=== PATIENT | female | born 1945 | race Caucasian/White ===

== ENCOUNTER 2017-03-20 08:46 | Outpatient (CLI) | payer MEDICARE, OTHER ==
[2017-03-20 10:04] LABS: HEMOGLOBIN A1C 0.51 g/dL
[2017-03-20 11:32] LABS: THYROID STIMULATING HORMONE 8.52 uIU/mL (0.34-5.60)
== END 2017-03-20 08:47 | disposition home or self-care (01) ==
LOC: LAB 08:46
PROVIDERS: ATTEND Student in an Organized Health Care Education/Training Program
DX: E03.9 Hypothyroidism, unspecified (principal)
CPT/HCPCS: 36415; 83036; 84439; 84443

== ENCOUNTER 2017-11-12 08:37 | Outpatient (CLI) | payer MEDICARE, OTHER ==
[2017-11-12 09:44] LABS: HB2 TOTAL 14.2 g/dL; HEMOGLOBIN A1C 0.52 g/dL; HEMOGLOBIN A1C % 5.5 % (4.6-6.2)
[2017-11-12 10:03] LABS: THYROID STIMULATING HORMONE 2.08 uIU/mL (0.34-5.60)
[2017-11-12 10:04] LABS: FREE T4 (FREE THYROXINE) 1.06 ng/dL (0.58-1.64)
== END 2017-11-12 08:38 | disposition home or self-care (01) ==
LOC: LAB 08:37
PROVIDERS: ATTEND Student in an Organized Health Care Education/Training Program
DX: E03.9 Hypothyroidism, unspecified (principal)
CPT/HCPCS: 36415; 83036; 84439; 84443

== ENCOUNTER 2017-12-01 10:02 | Outpatient (CLI) | payer MEDICARE, OTHER ==
--- NOTE | 2017-12-02 15:55 | Mammography Report ---
DIGITAL SCREENING MAMMOGRAM: 12/01/2017 CLINICAL INDICATION: A 72-year-old nulliparous patient with history of benign biopsies, for screening. COMPARISON: 07/2016, 04/2013, 02/2011, 01/2007. TECHNIQUE: Routine CC and MLO projections were obtained of the breasts. FINDINGS: The breasts again demonstrate heterogeneously dense fibroglandular parenchyma bilaterally. In the left upper outer posterior breast, there is a possible developing density with calcifications. Further evaluation with spot magnification views and possible ultrasound is recommended. No mammographically suspicious findings are identified in the right breast. IMPRESSION: INCOMPLETE EXAMINATION. RECOMMENDATION: ADDITIONAL EVALUATION OF THE LEFT BREAST ABOVE. BIRADS CATEGORY 0-INCOMPLETE. STANDARD QUALIFYING STATEMENTS: 1. This examination was reviewed with the aid of Computer-Aided Detection (CAD). 2. A negative or benign imaging report should not delay biopsy if clinically suspicious findings are present. Consider surgical consultation if warranted. More than 5% of cancers are not identified by imaging. 3. Dense breasts may obscure an underlying neoplasm. TD: 12/02/2017 15:54
== END 2017-12-01 10:03 | disposition home or self-care (01) ==
LOC: DI 10:02
PROVIDERS: ATTEND Internal Medicine
DX: Z12.31 Encounter for screening mammogram for malignant neoplasm of breast (principal); R92.8 Other abnormal and inconclusive findings on diagnostic imaging of breast; R92.1 Mammographic calcification found on diagnostic imaging of breast
CPT/HCPCS: 77067

== ENCOUNTER 2017-12-14 10:12 | Outpatient (CLI) | payer MEDICARE, OTHER ==
--- NOTE | 2017-12-14 13:06 | XRAY Report ---
ATTEMPTED EVALUATION OF VIKY'S POUCH: 12/14/2017 CLINICAL INDICATION: Patient with history of Crohn's disease, partial colectomy and Viky's pouch formation, evaluate residual rectum. FINDINGS: Initial creel selector view of the abdomen demonstrates postoperative changes, and an ostomy in the right lower quadrant. The surgical line of the Viky's pouch is noted overlying the coccyx. Despite multiple attempts in different positions, the patient's rectum could not be cannulized with a Voss catheter. As such, the procedure was terminated. IMPRESSION: UNSUCCESSFUL ATTEMPT TO EVALUATE THE PATIENT'S VIKY'S POUCH. FLUOROSCOPY TIME: 4 minutes 8 seconds; 7 spot images obtained. TD: 12/14/2017 13:05
== END 2017-12-14 10:13 | disposition home or self-care (01) ==
LOC: DI 10:12
PROVIDERS: ATTEND Surgery
DX: K62.4 Stenosis of anus and rectum (principal); K82.8 Other specified diseases of gallbladder
CPT/HCPCS: 74280

== ENCOUNTER 2017-12-23 08:55 | Outpatient (CLI) | payer MEDICARE, OTHER ==
--- NOTE | 2017-12-23 09:46 | Mammography Report ---
LEFT DIAGNOSTIC MAMMOGRAM: 12/23/2017 COMPARISON: Screening mammogram 12/09/2017. INDICATION: Followup left breast calcifications. TECHNIQUE: Multiple diagnostic left breast views for upper breast calcifications. FINDINGS: This finding is read in correlation with the screening mammogram. The breast parenchyma is extremely dense which may limit the sensitivity of mammography. Diagnostic views demonstrate nonlayering calcifications of the upper breast. They are round, punctate, and coarse, suggesting benignity. No dominant mass or architectural distortion is seen. IMPRESSION: 1. BI-RADS 2. BENIGN FINDINGS. 2. RECOMMEND ANNUAL SCREENING MAMMOGRAM. STANDARD QUALIFYING STATEMENTS: 1. This examination was reviewed with the aid of Computer-Aided Detection (CAD) . 2. A negative or benign imaging report should not delay biopsy if clinically suspicious findings are present. Consider surgical consultation if warranted. More than 5 % of cancers are not identified by imaging. 3. Dense breasts may obscure an underlying neoplasm. TD: 12/23/2017 09:46 POPEYE
== END 2017-12-23 08:56 | disposition home or self-care (01) ==
LOC: DI 08:55
PROVIDERS: ATTEND Internal Medicine
DX: R92.1 Mammographic calcification found on diagnostic imaging of breast (principal)

== ENCOUNTER 2018-01-01 08:59 | Outpatient (CLI) | payer MEDICARE, OTHER ==
[~2018-01-01 08:59] MED LIST: GADOBUTROL 10 MMOL/10 ML SYRINGE ONE
[2018-01-01 09:21] LABS: CREATININE 0.6 mg/dL (0.4-1.0)
[2018-01-01] MEDS ORDERED: GADOBUTROL 15 MMOL/15 ML VIAL IVP ONE ×2 (11:12)
[2018-01-01] MEDS ORDERED: GADOBUTROL 10 MMOL/10 ML SYRINGE IVP ONE (11:39)
--- NOTE | 2018-01-01 15:33 | MRI Report ---
EXAM: MRI PELVIS WITHOUT AND WITH CONTRAST EXAM DATE: 01/01/2018 11:36 AM. CLINICAL HISTORY: CROHN'S COLOSTOMY SCREENING IN PT WHO FAILED DYE STUDY. Unable to cannulate the roberta s, so unable to opacify the Worthy's pouch. COMPARISON: Report of attempted fluoroscopic evaluation of Worthy's pouch 12/14/2017 [facility]. CT abdomen pelvis 06/15/2016. TECHNIQUE: Multiplanar, multisequence T1-weighted and fluid-sensitive sequences of the pelvis before and after administration of intravenous contrast. IV contrast: 8 cc Gadavist. Other: None. FINDINGS: Bowels: As before, there is a right lower quadrant colostomy. As before, there is a empty Worthy's p ouch measuring approximately 8 cm in length and 1.7 cm maximum outer diameter. There is no fluid juan ection or inflammatory change in the abundant fat surrounding the Worthy's pouch. Visualized small b owel loops are normal in size. Retroperitoneum, peritoneum, mesentery: No lymphadenopathy or ascites. Vasculature: Unremarkable. Pelvic organs: Small volume bladder. Small anteverted uterus. No adnexal masses are identified. Abdominal wall: Right lower quadrant colostomy. As before, there is a left peritoneum hernia with fas cial defect 3.4 x 2.9 cm and hernia sac containing nonobstructed small bowel measuring 2.7 x 6.4 x 5. 6 cm. Bones: Left greater than right perineural (Tarlov) cysts at S2 on the left and S3 on the right. Bone marrow signal within normal limits. IMPRESSION: 1. Approximately 8 cm long empty Worthy's pouch without inflammatory change. 2. Right lower quadrant colostomy. 3. 2.7 x 6.4 x 5.6 cm left peritoneum in lower anterior abdominal wall hernia sac containing nonobstr ucted small bowel, as before. Referring Provider Line: [phone] SITE ID: [id number]
== END 2018-01-01 09:00 | disposition home or self-care (01) ==
LOC: DI 08:59
PROVIDERS: ATTEND Surgery
DX: Z13.89 Encounter for screening for other disorder (principal); K43.9 Ventral hernia without obstruction or gangrene; Z93.3 Colostomy status
CPT/HCPCS: 36415; 72197; 82565; A9585

== ENCOUNTER 2018-01-11 06:11 | Day surgery (SDC) | payer MEDICARE, OTHER ==
[2018-01-11] MEDS ORDERED: LACTATED RINGERS 1,000 ML IV ONE (06:29)
[2018-01-11] MEDS ORDERED: BENZOCAINE/TETRACAINE/BUTAMBEN SPRAY 56 GM ONE (07:31)
[2018-01-11] MEDS ORDERED: MIDAZOLAM 2 MG/2 ML VIAL IVP ONE (07:31)
[2018-01-11] MEDS ORDERED: fentaNYL 250 MCG/5 ML VIAL IVP ONE (07:31)
[2018-01-11] MEDS ORDERED: LIDO GARGLE 30 ML BOTTLE ONE (07:31)
[2018-01-11] MEDS ORDERED: BENZOCAINE/TETRACAINE/BUTAMBEN SPRAY 56 GM TOP ONE (07:48)
[2018-01-11] MEDS ORDERED: LIDO GARGLE 30 ML BOTTLE PO ONE (07:49)
[2018-01-11 08:57] VITALS: BP 97/56
== END 2018-01-11 06:12 | disposition home or self-care (01) ==
LOC: SDS 06:11
PROVIDERS: ATTEND Surgery
PROC: 0DBE8ZX Excision of Large Intestine, Via Natural or Artificial Opening Endoscopic, Diagnostic (ICD-10-PCS; principal; 2018-01-11 07:30)
PROC: 0DB48ZX Excision of Esophagogastric Junction, Via Natural or Artificial Opening Endoscopic, Diagnostic (ICD-10-PCS; 2018-01-11 07:30)
DX: K50.90 Crohn's disease, unspecified, without complications (principal); K22.70 Barrett's esophagus without dysplasia; Z87.19 Personal history of other diseases of the digestive system
CPT/HCPCS: 43239; 44389; A9270; J3010; J7120

== ENCOUNTER 2018-11-10 08:09 | Outpatient (CLI) | payer MEDICARE, OTHER ==
[2018-11-10 09:38] LABS: THYROID STIMULATING HORMONE 0.61 uIU/mL (0.34-5.60)
[2018-11-10 09:40] LABS: FREE T4 (FREE THYROXINE) 1.61 ng/dL (0.58-1.64)
== END 2018-11-10 08:10 | disposition home or self-care (01) ==
LOC: LAB 08:09
PROVIDERS: ATTEND Student in an Organized Health Care Education/Training Program
DX: E03.9 Hypothyroidism, unspecified (principal)
CPT/HCPCS: 36415; 84439; 84443

== ENCOUNTER 2019-09-12 10:28 | Outpatient (CLI) | payer MEDICARE, OTHER ==
--- NOTE | 2019-09-12 12:51 | XRAY Report ---
Reason: RT MEDIAL KNEE PAIN,DYSPNEA Procedure Date: 09/12/2019 Accession Number: [id number] / [id number] Procedure: XR - Knee 3 View RT CPT Code: Final Report FULL RESULT: EXAM: RIGHT KNEE RADIOGRAPHY EXAM DATE: 09/12/2019 10:35 AM. CLINICAL HISTORY: Progressive knee pain. No known injury. COMPARISON: None. TECHNIQUE: 3 views. FINDINGS: Bones: The osseous structures are mineralized which does limit characterization of the cortices. No fractures or bone lesions. Joints: Moderate degenerative changes noted, maximal involving the medial compartment with narrowing, subchondral sclerosis and osteophytic formation. No subluxations. Soft Tissues: Small suprapatellar effusion. No alissa soft tissue swelling. IMPRESSION: 1. No acute fracture focus obstruction. 2. Degenerative changes, maximal involving the medial compartment as described. Consider MRI if there is clinical concern for internal derangement. [facility]
--- NOTE | 2019-09-12 13:19 | XRAY Report ---
Reason: RT MEDIAL KNEE PAIN,DYSPNEA Procedure Date: 09/12/2019 Accession Number: [id number] / [id number] Procedure: XR - Chest 2 View X-Ray CPT Code: 87811 Final Report FULL RESULT: EXAM: CHEST RADIOGRAPHY EXAM DATE: 09/12/2019 10:35 AM. CLINICAL HISTORY: Dyspnea. COMPARISON: None. TECHNIQUE: 2 views. FINDINGS: Lungs/Pleura: Minimal bibasilar atelectasis or scar formation. No focal opacities evident. No pleural effusion. No pneumothorax. Normal volumes. Mediastinum: Tortuous aorta. The heart is normal in size and configuration. Other: Minimal degenerative change in the thoracic spine. IMPRESSION: No acute process. [facility]
== END 2019-09-12 10:29 | disposition home or self-care (01) ==
LOC: DI 10:28
PROVIDERS: ATTEND Internal Medicine
DX: R06.00 Dyspnea, unspecified (principal); M17.11 Unilateral primary osteoarthritis, right knee
CPT/HCPCS: 71046

== ENCOUNTER 2019-09-21 09:23 | Outpatient (CLI) | payer MEDICARE, OTHER ==
[~2019-09-21 09:23] MED LIST changes: +ALBUTEROL NEB 2.5 MG/3 ML INH SCH; -GADOBUTROL 10 MMOL/10 ML SYRINGE ONE
== END 2019-09-21 09:24 | disposition home or self-care (01) ==
LOC: RT 09:23
PROVIDERS: ATTEND Internal Medicine
DX: R06.00 Dyspnea, unspecified (principal)
CPT/HCPCS: 94060

== ENCOUNTER 2019-09-23 14:36 | Outpatient (CLI) | payer MEDICARE, OTHER | END 2019-09-23 14:37 | disposition home or self-care (01) | LOC: DI 14:36 | PROVIDERS: ATTEND Internal Medicine | DX: Z53.9 Procedure and treatment not carried out, unspecified reason (principal) | CPT/HCPCS: 76642 ==

== ENCOUNTER 2019-09-28 08:53 | Outpatient (CLI) | payer MEDICARE, OTHER ==
--- NOTE | 2019-09-28 19:00 | CARDIAC PROCEDURE NOTE ---
DATE OF SERVICE: 09/28/2019 Physician: Alanna Sethi MD, [facility] INDICATION: Shortness of breath. CARDIAC RISK FACTORS: 1. Advanced age. 2. Possibly untreated hypertension (see below). DESCRIPTION OF PROCEDURE: After signing informed consent, the patient underwent a Rodney-protocol treadmill stress test with nuclear myocardial perfusion imaging. RESTING HEART RATE: 79. Peak heart rate 125 (85% predicted maximum heart rate for age). RESTING BLOOD PRESSURE: 131/86. Peak blood pressure: 189/102. The patient only exercised for 1 minute and 41 seconds on a Rodney-protocol treadmill stress test. She developed shortness of breath quickly. She had no chest pain. The exercise was stopped because of severe shortness of breath and fatigue and she requested for it to be stopped. Peak heart rate achieved was 125 (85% PMHR) and 2.8 METS. Oxygen saturation dropped from 99% at rest on room air to 90% at peak, and respiratory rate was greater than 40. Oxygen saturation recovered from 91% -97% after 1 minute of recovery, on room air. The patient had very slow recovery of blood pressure: 6 minutes following stopping, the blood pressure was still 194/100. RESTING EKG: Normal sinus rhythm, early R/S transition, small inferior Q-waves are present. EKG AT [facility]: No new ST segment or T-wave abnormalities. SUMMARY: 1. Abnormal resting EKG, suggestive of cor pulmonale. 2. Very poor exercise tolerance. 3. Oxygen desaturation occurs with exertion. 4. No ischemic changes by EKG criteria during brief treadmill exercise. 5. Blood pressure response was excessive and was slow to recover. She may have uncontrolled hypertension. 6. Nuclear images reported separately. cc: Mahesh Arboleda MD TD: 09/28/2019 12:17 MTDD
--- NOTE | 2019-09-29 13:55 | Nuclear Medicine Report ---
Reason: DYSPNEA Procedure Date: 09/28/2019 Accession Number: [id number] / [id number] Procedure: NM - Myocardial Perfusion STR/RST CPT Code: Final Report FULL RESULT: EXAM: SINGLE-ISOTOPE EXERCISE STRESS TEST. SINGLE-ISOTOPE AND ONE-DAY REST/STRESS MYOCARDIAL PERFUSION SCANS WITH TOMOGRAPHIC IMAGING, QUANTITATIVE ANALYSIS, WALL MOTION ANALYSIS AND CALCULATION OF EJECTION FRACTION. EXAM DATE: 09/28/2019 03:11 PM. CLINICAL HISTORY: Dyspnea. COMPARISON: None available. TECHNIQUE: A rest myocardial perfusion scan was done with tomography after the intravenous administration of 10.7 mCi Tc-99m sestamibi. After an appropriate delay, a treadmill exercise stress was performed according to department protocol. The patient exercised for 1 minutes and 41 seconds. The maximum heart rate was 125 bpm, which was 84% of the maximum predicted heart rate of 148 bpm. At approximately peak heart rate, 42.7 mCi of Tc-99m sestamibi was injected for stress myocardial perfusion scan. Motion correction was applied when appropriate. Gated tomographic images were obtained for wall motion analysis and computation of left ventricular ejection fraction. FINDINGS: There is a small fixed apical perfusion defect. There is decreased activity in distal septum, similar between the rest and stress images, suspect septal thinning. No convincing reversible perfusion defects are evident. Visually corrected summed stress score 2 Visually corrected summed rest score 2 Visually corrected summed difference score 0 Wall motion analysis demonstrates no focal wall motion abnormality. The left ventricular end-diastolic volume is 72 cc. The left ventricular end-systolic volume is 9 cc. The left ventricular ejection fraction is calculated to be 87%. IMPRESSION: 1. Small fixed apical perfusion defect. No convincing reversible perfusion defects. 2. Normal left ventricular ejection fraction of 87%. 3. Normal segmental and global wall motion. 4. Normal left ventricular cavity size, no change with stress. Please correlate findings with stress ECG tracings and procedure notes. [facility]
== END 2019-09-28 08:54 | disposition home or self-care (01) ==
LOC: DI 08:53
PROVIDERS: ATTEND Internal Medicine
DX: R06.09 Other forms of dyspnea (principal); R94.31 Abnormal electrocardiogram [ECG] [EKG]; N63.21 Unspecified lump in the left breast, upper outer quadrant
CPT/HCPCS: 76642; 77066; 78452; 93017; A9500

== ENCOUNTER 2019-09-28 08:55 | Outpatient (CLI) | payer MEDICARE, OTHER ==
--- NOTE | 2019-09-28 16:57 | Ultrasound Report ---
REVISED: THIS REPORT WAS ORIGINALLY SIGNED ON 09/28/2019 @ 16:48. THE REPORT WAS MOVED TO CORRECT ACCOUNT ON 09/29/2019. Reason: LT BREAST LUMP Procedure Date: 09/28/2019 Accession Number: [id number] / [id number] Procedure: US - Breast Unilateral Limited CPT Code: Final Report FULL RESULT: EXAM: Diagnostic Dig Bilat, Breast Unilateral Limited DATE: 09/28/2019 2:34 PM CLINICAL HISTORY: New palpable left upper outer quadrant mass COMPARISON: 12/23/2017, 12/01/2017, 07/16/2016, 04/13/2013. MAMMOGRAM: TECHNIQUE: (B) - Bilateral CC and MLO views were obtained. PARENCHYMAL PATTERN: (D) - The breasts demonstrate heterogeneously dense fibroglandular parenchyma bilaterally. FINDINGS: Right breast: No significant interval change. There are no suspicious masses, calcifications, or areas of distortion. Left breast: Corresponding to the palpable mass is a new left upper outer quadrant 2 cm mass mass containing malignant appearing calcifications approximately 12 cm from the nipple. Two or 3 small round adjacent more posterior lymph nodes are similar to previous. Three cm anterior, medial, and inferior to the new mass is a second 1 cm cluster of pleomorphic malignant appearing calcifications associated with faint increased soft tissue density. No other new findings. LEFT BREAST ULTRASOUND: TECHNIQUE: Real time scanning by the sand cutter operator with me present with saved static images reviewed. FINDINGS: 1. Corresponding to the palpable mass is a 1.7 x 1.6 x 1.1 cm ovoid complex heterogenous mass 1:30 position 9 cm from the nipple with minimal internal vascularity and containing small echogenic calcifications. 2. In the left axilla there is a 3.4 x 3.2 x 2.3 cm abnormal-appearing hypoechoic heterogeneity breasts vascular lymph node. 3. The 1 cm cluster of pleomorphic calcifications anterior, medial, and inferior to the dominant mass is not appreciated by ultrasound. IMPRESSION: Highly suggestive for malignancy. BI-RADS category 5. Left breast RECOMMENDATION: (BIOPSY) - 1. Ultrasound-guided core biopsy of the palpable left upper outer quadrant mass. 2. Ultrasound-guided FNA of the abnormal left axillary lymph node. 3. Stereotactic core biopsy of the clustered malignant appearing calcifications not seen by ultrasound. BI-RADS CATEGORY: (5) - Highly suggestive for malignancy. Comment: Results called to Dr. Mahesh Ford 3:00 PM 09/28/2019. STANDARD QUALIFYING STATEMENTS: 1. This examination was not reviewed with the aid of Computer-Aided Detection (CAD). 2. A negative or benign imaging report should not preclude biopsy if clinically suspicious findings are present. 3. Dense breasts may obscure an underlying neoplasm. 4. This examination was reviewed with the aid of 3D breast imaging (tomosynthesis). [facility]
== END 2019-09-28 08:56 | disposition home or self-care (01) ==
LOC: DI 08:55
PROVIDERS: ATTEND Internal Medicine
DX: N63.21 Unspecified lump in the left breast, upper outer quadrant (principal)
CPT/HCPCS: 76642; 77066

== ENCOUNTER 2019-10-21 09:39 | Outpatient (CLI) | payer MEDICARE, OTHER ==
[~2019-10-21 09:39] MED LIST changes: -ALBUTEROL NEB 2.5 MG/3 ML INH SCH; +BUFFERED LIDOCAINE 10 ML SYRINGE ONE
[2019-10-21] MEDS ORDERED: BUFFERED LIDOCAINE 10 ML SYRINGE ONE (10:44)
--- NOTE | 2019-10-21 15:57 | Mammography Report ---
Reason: ABN MAMMO - CALCS Procedure Date: 10/21/2019 Accession Number: [id number] / [id number] Procedure: JAYMIE - Stereotactic Core BX LT CPT Code: 84430 Final Report FULL RESULT: EXAM: Biopsy Breast Cor - two sites, Stereotactic Core BX Left DATE: 10/21/2019 1:14 PM CLINICAL HISTORY: The patient is a 74-year-old female recent left breast diagnostic work-up demonstrating a solid mass, regional suspicious calcification and an enlarged lymph node (left breast). A 3 side biopsy was recommended to confirm multicentric (lesions in the upper outer quadrant) and regional metastatic disease (axillary node). TECHNIQUE: PROCEDURE: Ultrasound-guided needle biopsies - two sites (breast mass and axillary lymph node). Stereotactic-guided needle biopsy- one site (calcifications) Informed consent was obtained. CLINICAL DATA: TARGET 1) Targeted solid mass measuring 1.7 cm with irregular margins in the 1:30 axis of the left breast. Using standard aseptic technique, both 1% buffered lidocaine and Sensorcaine were injected into the left breast for local anesthesia. A small leonid was made in the skin with a #11 blade. A 14-gauge Achieve device was used to obtain 3 specimens. A specialized biopsy marker clip was placed into the biopsy cavity under ultrasound guidance. TARGET 2) Targeted enlarged lymph node measuring 3.4 cm in the axilla of the left breast. Using standard aseptic technique, both 1% buffered lidocaine and Sensorcaine were injected into the left breast for local anesthesia. A small leonid was made in the skin with a #11 blade. A 14-gauge Achieve device was used to obtain 2 specimens. A specialized biopsy marker clip was placed into the biopsy cavity under ultrasound guidance. TARGET 3) Targeted pleomorphic grouped calcifications spanning 1 cm in the 1:30 position 6 cm from the nipple of the left breast. Using standard aseptic technique, both 1% buffered lidocaine and Sensorcaine were injected into the left breast for local anesthesia. A small leonid was made in the skin with a #11 blade. A standard 9-guage vacuum assisted device was directed into the grouped calcifications under stereotactic guidance and 6 specimens were obtained. Specimen radiograph confirmed the presence of calcifications. A specialized biopsy marker clip was placed into the biopsy cavity under stereotactic guidance. The patient was taken to separate mammography machine and a two-view digital mammography was performed to verify the clip placement in the mass and calcifications and any complications. The mammography showed clips to be in expected locations.. No immediate complications. The wound was dressed and ice applied. The patient was observed for approximately 15 minutes, then was discharged from diagnostic Imaging Department in good condition following instructions on wound care and obtaining biopsy results. The patient is scheduled to receive the biopsy results from Dr. Mahesh Arboleda. The tissue was sent for histologic analysis. IMPRESSION: Successful left breast biopsies - 3 sites; ultrasound-guided core biopsy of the breast mass, ultrasound guided core biopsy of a axillary lymph node and stereotactic core biopsy of calcifications, as described. AN ADDENDUM WILL REMAIN TO THIS REPORT WHEN PATHOLOGY IS REVIEWED TO ESTABLISH CONCORDANCE.
[2019-10-21] MEDS: BUFFERED LIDOCAINE 10 ML SYRINGE IU ONE ×2 (16:02→16:58)
[2019-10-21] MEDS ORDERED: BUPIVACAINE 0.5% PF 10 ML VIAL IM ONE (16:02)
[2019-10-21] MEDS ORDERED: LIDOCAINE MPF 1%-EPI 1:200000 10 ML VIAL SUBQ ONE (16:59)
== END 2019-10-21 09:40 | disposition home or self-care (01) ==
LOC: DI 09:39
PROVIDERS: ATTEND Internal Medicine
DX: C50.412 Malignant neoplasm of upper-outer quadrant of left female breast (principal); C77.3 Secondary and unspecified malignant neoplasm of axilla and upper limb lymph nodes; Z17.1 Estrogen receptor negative status [ER-]
CPT/HCPCS: 19081; 19083; 19084; 88305; 88341; 88342; 88360

== ENCOUNTER 2019-11-08 12:07 | Outpatient (CLI) | payer MEDICARE, OTHER ==
[2019-11-08] MEDS ORDERED: GADOBUTROL 10 MMOL/10 ML VIAL ONE (12:24)
[2019-11-08] MEDS ORDERED: GADOBUTROL 10 MMOL/10 ML VIAL IVP ONE (13:18)
--- NOTE | 2019-11-08 16:13 | MRI Report ---
Reason: INVASIVE DUCTAL CARCINOMA LT BREAST Procedure Date: 11/08/2019 Accession Number: [id number] / [id number] Procedure: MRI - Breast W/WO Cont CPT Code: 08053 Final Report FULL RESULT: EXAM: Breast W/WO Cont DATE: 11/08/2019 1:41 PM CLINICAL HISTORY: INVASIVE DUCTAL CARCINOMA LT BREAST COMPARISON: None. TECHNIQUE: 1.5 T. Field strength. Dedicated breast coil: Axial - precontrast STIR Axial-precontrast T1 nonfat saturated Axial - postcontrast sequential 1 minute three-dimensional FLASH (x 5) Axial - high-resolution volumetric water stimulation acquisition (VIEWS) CONTRAST USED: 9 mL Gadavist (gadolinium). POSTPROCESSING: Subtraction dynamic/curve analysis and multiplanar reformations with CAD stream FINDINGS: Chest: No convincing intrathoracic mass or adenopathy. Right breast: The right breast demonstrates mild to moderate background parenchymal enhancement. Morphologically preserved intramammary lymph nodes are seen. There is no suspicious mass or nonmass enhancement. Right external and internal mammary hemal chains appear normal. Left breast: The left breast demonstrate mild to moderate Parenchymal enhancement. The biopsy-proven left breast DCIS is located 10 cm deep to the nipple in the posterior breast cone and contains a biopsy marker, increased nonmasslike enhancement difficult to differentiate from background breast parenchyma. Essentially in contiguity with the nonmasslike enhancement cranially and more posteriorly along the axillary wall superficial to the chest wall, 12.5 cm from the nipple is the biopsy-proven mass with biopsy marker which measures up to 3.3 x 2.6 x 2.8 cm. The mass is intimately associated with the pectoralis major which demonstrates increasing enhancement, no convincing full thickness invasion. The largest left axillary hemal mass measures 3.7 x 2.9 x 3.8 cm in level 1 and enhances homogenously. Additional nearby axillary lymph nodes demonstrate loss of architecture with more cranial level 2 nodes that are visualized on the CT examination performed the same day. No internal mammary lymphadenopathy, no convincing skin involvement or full-thickness invasion of the chest wall musculature. IMPRESSION: No right breast mass. Left breast axillary lymphadenopathy with involvement of at least 2 levels and association with the chest wall. Multicentric left breast cancer abutting the chest wall without full thickness invasion as described. BI-RADS 6. COMMENT: The literature indicates that a negative dynamic breast MRI has a high sensitivity and specificity for the detection of invasive carcinoma (to a threshold of 5 mm). MRI is not reliably sensitive for detecting ductal carcinoma in situ or large invasive neoplasms with only minimal enhancement (i.e. mucinous carcinoma). Normal-appearing lymph nodes on MRI may contain microscopic tumor. Appropriate clinical mammographic and sonographic followup should be performed if recommended. Negative MRI should not dissuade further evaluation of any suspicious mammographic calcifications and/or worrisome palpable masses.
== END 2019-11-08 12:08 | disposition home or self-care (01) ==
LOC: DI 12:07
PROVIDERS: ATTEND Surgery
DX: C50.912 Malignant neoplasm of unspecified site of left female breast (principal); R59.0 Localized enlarged lymph nodes
CPT/HCPCS: 77049; A9585

== ENCOUNTER 2019-11-11 08:23 | Day surgery (SDC) | payer MEDICARE, OTHER ==
[2019-11-11] MEDS ORDERED: PROPOFOL 200 MG/20 ML VIAL IVP ONE (08:24)
[2019-11-11] MEDS ORDERED: fentaNYL 100 MCG/2 ML VIAL IVP ONE (08:24)
[2019-11-11] MEDS ORDERED: MIDAZOLAM 2 MG/2 ML VIAL IVP ONE (08:24)
[2019-11-11] MEDS ORDERED: LACTATED RINGERS 1,000 ML IV ONE (08:34)
--- NOTE | 2019-11-11 08:45 | ANESTHESIA ---
Pre-Anesthesia VS, & Labs - Diagnosis Left breast cancer - Procedure Placement of port Vital Signs: Temp Pulse Resp BP Pulse Ox 36.0 C L 100 18 155/83 H 98 11/11/19 08:34 11/11/19 08:34 11/11/19 08:34 11/11/19 08:34 11/11/19 08:34 Height 5 ft 1 in Weight (kg) 88.2 kg Body Mass Index 37.3 - NPO >8 hours - Is Patient ?: No Home Medications and Allergies Levothyroxine [Synthroid] 112 mcg PO QDAC 08/19/16 Lidocaine/Prilocain 2.5% Cream [Emla 2.5% Cream] 30 g PRN PRN 11/10/19 Ondansetron [Ondansetron Odt] 4 mg PO PRN PRN 11/10/19 Prochlorperazine Maleate [Compazine] 10 mg PO PRN PRN 11/10/19 Allergies/Adverse Reactions: Allergies Allergy/AdvReac Type Severity Reaction Status Date / Time No Known Drug Allergies Allergy Verified 03/04/13 16:54 Anes History & Medical History - Medical History Cardiovascular: reports: None Pulmonary: reports: COPD (mild, in pulmonary rehab) Gastrointestinal: reports: Crohn's disease, Other Urinary: reports: Kidney stones (history of stones 7 years ago) Neuro: reports: None (history of graves disease, treated with BRITT. now hypothyroid) Musculoskeletal: reports: Osteoarthritis Endocrine/Autoimmune: reports: HyPERthyroidism, HyPOthyroidism Skin: reports: Rosacea Smoking Status: Never smoker Psychosocial: reports: No issues indicated - Surgical History General: Cholecystectomy, Colonoscopy, Other (colon resection) Eyes Ears Nose Throat (EENT): Tonsil/Adenoidectomy Exam General: Alert, Oriented x3, Cooperative, No acute distress Dental: WNL Mouth Openin Fingerbreadth Neck Mobility: Normal Mallampati classification: II Thyromental Distance: greater than 6 cm Cognitive Status: Within normal limits Plan Anesthesia Type: MAC Consent for Procedure(s) Verified and Reviewed: Yes Code Status: Attempt Resuscitation ASA classification: 3-Severe systemic disease Is this case an emergency?: No
[2019-11-11] MEDS ORDERED: CEFAZOLIN SODIUM IN 0.9 % NACL 2 GM/100 ML BAG IV ONE (09:00)
[2019-11-11] MEDS ORDERED: ceFAZolin 1 GM VIAL IR ONE (09:35)
[2019-11-11] MEDS ORDERED: LIDOCAINE 1% 50 ML MDV SUBQ ONE ×2 (09:36)
--- NOTE | 2019-11-11 10:24 | XRAY Report ---
Reason: portacath placement Procedure Date: 11/11/2019 Accession Number: [id number] / [id number] Procedure: FL - OR C-Arm Procedure CPT Code: Final Report FULL RESULT: EXAM: FLUOROSCOPIC GUIDANCE EXAM DATE: 11/11/2019 10:01 AM. CLINICAL HISTORY: Port-A-Cath placement. COMPARISON: None. FINDINGS: No images submitted. IMPRESSION: Fluoroscopic guidance provided for reported Port-A-Cath placement. Total fluoroscopy time: Under 1 second with dose area product 42.2 uGy m [facility]
[2019-11-11] MEDS ORDERED: ACETAMINOPHEN 325 MG TABLET PO PRN (10:34)
[2019-11-11] MEDS ORDERED: IBUPROFEN 600 MG TABLET PO PRN (10:34)
[2019-11-11] MEDS ORDERED: ONDANSETRON 4 MG/2 ML VIAL IVP PRN (10:34)
[2019-11-11] MEDS ORDERED: oxyCODONE 5 MG TABLET PO PRN (10:34)
[2019-11-11 11:06] VITALS: BP 105/67
--- NOTE | 2019-11-11 11:23 | XRAY Report ---
Reason: S/P PORT PLACEMENT Procedure Date: 11/11/2019 Accession Number: [id number] / [id number] Procedure: XR - Chest for Line Placement CPT Code: Final Report FULL RESULT: EXAM: CHEST RADIOGRAPHY EXAM DATE: 11/11/2019 10:53 AM. CLINICAL HISTORY: Status post port placement. COMPARISON: CHEST 2 VIEW 09/12/2019 10:35 AM. TECHNIQUE: 1 view. FINDINGS: Lungs/Pleura: No focal opacities evident. No pleural effusion. No pneumothorax. Mediastinum: Within exam limitations, the cardiomediastinal contour is normal. Other: Right subclavian chest port terminates with catheter tip in the lower SVC. IMPRESSION: Catheter position as described. [facility]
--- NOTE | 2019-11-11 20:09 | OPERATIVE REPORT ---
DATE OF SERVICE: 11/11/2019 Physician: Shayan Abbott MD PREOPERATIVE DIAGNOSIS: Breast cancer. POSTOPERATIVE DIAGNOSIS: Breast cancer. PROCEDURE PERFORMED: Insertion of PowerPort implantable venous access device. ANESTHESIA: Local plus monitored anesthesia care by Marty Ceja CRNA. SURGEON: Shayan Abbott MD ESTIMATED BLOOD LOSS: 10 mL COMPLICATIONS: None. FINDINGS: A standard profile single lumen PowerPort reservoir was placed in the right infraclavicula r fossa. Catheter tip was confirmed in the superior vena cava with fluoroscopy. INDICATIONS: Patient is a 74-year-old woman with a recent diagnosis of locally advanced breast cance r. She is planning to undergo neoadjuvant chemotherapy and advised to undergo placement of a port to facilitate same. TECHNIQUE: After informed consent, patient was taken to the operating room where she was sedated and monitored. Preoperative preparation included application of sequential calf compression boots and a dministration of 2 grams cefazolin intravenously within an hour of the incision. Her anterior chest wall and neck were prepared with ChloraPrep solution and draped in the usual sterile fashion. Tricia t was placed in steep Trendelenburg position and a needle and syringe were used to access the right s ubclavian vein percutaneously. The right side was chosen because of the cancer being located in the left breast. After several passes the vein was accessed and a guidewire passed into the central veno us circulation. Initial passage of the guidewire was unsuccessful and repeat passive guidewire was s uccessful in placing the guidewire in the appropriate location. The tract was then dilated and an 8- Libyan single lumen Silastic catheter, which had been soaked in antibiotic solution containing a gram of cefazolin per liter and flushed with sterile saline was then passed into the central venous circu lation through the breakaway sheath and catheter tip confirmed in the SVC by fluoroscopy. The breaka way sheath was removed. Next, 1% lidocaine plain was used for local infiltration of anesthesia, a to capri of 20 mL was used. The catheter exit site incision was then extended medially for a distance of 3 cm. Hemostasis achieved with electrocautery. Subcutaneous pocket was created of sufficient size t o allow placement of the reservoir. After hemostasis had been achieved, the reservoir was irrigated with antibiotic solution. The catheter was trimmed to appropriate length, connected to the hub on th e reservoir, and the locking device was securely applied in the usual fashion. The reservoir was saulo christen in the subcutaneous pocket. It was secured to the pectoral fascia at 2 points with a 2-0 nylon s uture and a 3-0 nylon suture. Care was taken to avoid excessive kinking or redundancy of the cathete r. After hemostasis again assured, the wound was again irrigated with antibiotic solution, wound emory sure was accomplished in layers using continuous 3-0 Vicryl to reapproximate the subcutaneous tissues , followed by 4-0 Monocryl subcuticular skin closure. The port reservoir site was marked and then a Aldana needle and syringe were used to percutaneously access the port. It was seen to aspirate blood and flush easily. It was flushed with 10 mL of sterile saline. Dermabond was applied to the incisio n. The procedure was then terminated, and patient was transferred to the recovery room in satisfacto ry condition. Sponge and needle counts were correct and no drains were used. A portable upright [facility] st x-ray is pending. TD: 11/11/2019 10:53
== END 2019-11-11 08:24 | disposition home or self-care (01) ==
LOC: SDS 08:23
PROVIDERS: ATTEND Internal Medicine Gastroenterology
PROC: 02HV33Z Insertion of Infusion Device into Superior Vena Cava, Percutaneous Approach (ICD-10-PCS; principal; 2019-11-11 13:00)
DX: C50.919 Malignant neoplasm of unspecified site of unspecified female breast (principal); J44.9 Chronic obstructive pulmonary disease, unspecified; K50.90 Crohn's disease, unspecified, without complications; E89.0 Postprocedural hypothyroidism; G25.0 Essential tremor; M47.812 Spondylosis without myelopathy or radiculopathy, cervical region; E66.9 Obesity, unspecified; Z68.36 Body mass index [BMI] 36.0-36.9, adult; Z92.3 Personal history of irradiation; Z90.49 Acquired absence of other specified parts of digestive tract; Z79.82 Long term (current) use of aspirin
CPT/HCPCS: 36561; C1788; J0690; J7120; 71045

== ENCOUNTER 2019-11-12 14:33 | Emergency (ER) | payer MEDICARE, OTHER ==
--- NOTE | 2019-11-12 15:41 | ED Physician Documentation ---
PD HPI WOUND RECHECK - Stated complaint Stated Complaint: CHEST REDNESS - Chief complaint Chief Complaint: Wound - Histroy obtained from History obtained from: Patient, Family - History of Present Illness Location: Other (R chest wall) Timing - onset: Yesterday Pain level max: 0 Pain level now: 0 Associated symptoms: Swelling. No: Fever, Redness, Drainage, Pain - Additional information Additional information: Patient had a port placed in the right chest yesterday. Today noted increasing bruising, concerned about potential infection. No fever. Nothing makes it better or worse Review of Systems Constitutional: denies: Fever, Chills GI: denies: Vomiting Skin: denies: Rash PD PAST MEDICAL HISTORY - Past Medical History Past Medical History: Yes Cardiovascular: None Respiratory: COPD Neuro: None Endocrine/Autoimmune: HyPERthyroidism, HyPOthyroidism GI: Crohn's disease, Other : Kidney stones HEENT: None Psych: None Musculoskeletal: Osteoarthritis Derm: Rosacea - Past Surgical History Past Surgical History: Yes General: Cholecystectomy, Colonoscopy, Other HEENT: Tonsil/Adenoidectomy - Present Medications Home Medications: Ambulatory Orders Medication Instructions Recorded Confirmed Levothyroxine [Synthroid] 112 mcg PO QDAC 08/19/16 11/11/19 Lidocaine/Prilocain 2.5% Cream 30 g PRN PRN 11/10/19 11/11/19 [Emla 2.5% Cream] Ondansetron [Ondansetron Odt] 4 mg PO PRN PRN 11/10/19 11/11/19 Prochlorperazine Maleate 10 mg PO PRN PRN 11/10/19 11/11/19 [Compazine] - Allergies Allergies/Adverse Reactions: Allergies Allergy/AdvReac Type Severity Reaction Status Date / Time No Known Drug Allergies Allergy Verified 11/12/19 14:42 - Social History Does the pt smoke?: No Smoking Status: Never smoker Does the pt drink ETOH?: Yes Does the pt have substance abuse?: No - Immunizations Immunizations are current?: Yes - POLST Patient has POLST: No PD ED PE NORMAL - Vitals Vital signs reviewed: Yes - General General: Alert and oriented X 3, No acute distress, Well developed/nourished - HEENT HEENT: Moist mucous membranes - Neck Neck: Supple, no meningeal sign - Cardiac Cardiac: RRR, Strong equal pulses - Respiratory Respiratory: No respiratory distress, Clear bilaterally - Derm Derm: Warm and dry, Other (Port in the right anterior chest. There is bruising surrounding this. There is also bruising extending inferiorly. There is no warmth. No erythema. No drainage.) - Neuro Neuro: Alert and oriented X 3 - Psych Psych: Normal mood, Normal affect Results - Vitals Vitals: Vital Signs - 24 hr 11/12/19 14:37 Temperature 36.1 C L Heart Rate 97 Respiratory 16 Rate Blood Pressure 152/83 H O2 Saturation 96 Oxygen O2 Source Room air PD MEDICAL DECISION MAKING - ED course Complexity details: considered differential, d/w patient, d/w wardrobe image consultant ED course: Patient with postoperative ecchymosis. No evidence of infection. Discussed the case with Dr. Abbott, he states that he does not need to recheck her on Thursday, that she can go directly to oncology and they will check the port before they begin using it. Patient counseled regarding signs and symptoms for which I believe and urgent re-evaluation would be necessary. Patient with good understanding of and agreement to plan and is comfortable going home at this time This document was made in part using voice recognition software. While efforts are made to proofread this document, sound alike and grammatical errors may occu r. Departure - Departure Disposition: 01 Home, Self Care Clinical Impression: Postoperative ecchymosis Condition: Good Instructions: ED Wound Check Post Op No Infec Follow-Up: Mahesh Arboleda MD [Primary Care Provider] - Comments: I spoke with Dr. Abbott today, he states that Dr. Chao will check your port on Thursday. Return if you worsen. You will continue to have bruising. Return if there is redness, swelling or drainage from the wound.
[2019-11-12 15:52] VITALS: BP 126/87
== END 2019-11-12 15:51 | disposition home or self-care (01) ==
LOC: ED 14:33
DX: L76.32 Postprocedural hematoma of skin and subcutaneous tissue following other procedure (principal); Y83.8 Other surgical procedures as the cause of abnormal reaction of the patient, or of later complication, without mention of misadventure at the time of the procedure
CPT/HCPCS: 99282; 99284

== ENCOUNTER 2019-11-18 08:40 | Outpatient (CLI) | payer MEDICARE, OTHER ==
--- NOTE | 2019-11-20 09:19 | Nuclear Medicine Report ---
Reason: LT BREAST CA Procedure Date: 11/18/2019 Accession Number: [id number] / [id number] Procedure: NM - Bone Whole Body CPT Code: Final Report FULL RESULT: EXAM: BONE SCAN EXAM DATE: 11/18/2019 12:50 PM. CLINICAL HISTORY: LT BREAST CA. COMPARISON: CT CHEST W/O 11/08/2019 2:28 PM. TECHNIQUE: Following the intravenous administration of 31.1 mCi of technetium 99m MDP and an appropriate delay, a whole-body scan was performed in anterior and posterior projections. Site-specific spot views of the region of interest were obtained in various projections. FINDINGS: Normal renal radiotracer uptake and bladder activity. Normal soft tissue activity. Overall normal osseous uptake. Probable degenerative uptake at the right knee and mid feet bilaterally. Probable degenerative uptake in the cervical spine. Minimal focal uptake at the distal right seventh and distal left sixth ribs, indeterminate, may be posttraumatic. Otherwise no suspicious uptake. IMPRESSION: 1. No definite scintigraphic evidence of osseous metastasis. 2. Minimal focal uptake distal right seventh and left sixth ribs, may be posttraumatic. 3. Multifocal probable degenerative uptake as noted above. RADIA
== END 2019-11-18 08:41 | disposition home or self-care (01) ==
LOC: DI 08:40
PROVIDERS: ATTEND Internal Medicine Hematology & Oncology
DX: C50.912 Malignant neoplasm of unspecified site of left female breast (principal)
CPT/HCPCS: 78306

== ENCOUNTER 2020-01-26 08:51 | Outpatient (CLI) | payer MEDICARE, OTHER ==
--- NOTE | 2020-01-26 11:47 | Nuclear Medicine Report ---
Reason: BREAST CANCER Procedure Date: 01/26/2020 Accession Number: [id number] / [id number] Procedure: NM - MUGA Cardiac Imaging CPT Code: Final Report FULL RESULT: EXAM: RADIONUCLIDE VENTRICULOGRAM (MUGA) WITH EJECTION FRACTION CALCULATION EXAM DATE: 01/26/2020 11:28 AM. CLINICAL HISTORY: 75-year-old female with breast carcinoma undergoing a chemotherapy-related evaluation. COMPARISON: None. TECHNIQUE: Patient's own red blood cells were labeled with 26.7 mCi technetium 99m sodium pertechnetate according to the department protocol. Following the radiolabeling procedure, equilibrium gated dynamic imaging of the myocardium was acquired from standard projections. FINDINGS: The right and left ventricles contract in a normal segmental and global fashion. The resting left ventricular ejection fraction is calculated to be 73%. This finding is confirmed with visual analysis. IMPRESSION: Normal MUGA study with ejection fraction 73%. RADIA
== END 2020-01-26 08:52 | disposition home or self-care (01) ==
LOC: DI 08:51
PROVIDERS: ATTEND Internal Medicine Hematology & Oncology
DX: C50.612 Malignant neoplasm of axillary tail of left female breast (principal)
CPT/HCPCS: 78472; A9512; A9538

== ENCOUNTER 2020-03-06 08:44 | Outpatient (CLI) | payer MEDICARE, OTHER | END 2020-03-06 08:45 | disposition home or self-care (01) | LOC: DI 08:44 | PROVIDERS: ATTEND Physician Assistant | DX: Z53.9 Procedure and treatment not carried out, unspecified reason (principal) ==

== ENCOUNTER 2020-03-30 14:20 | Outpatient (CLI) | payer MEDICARE, OTHER | END 2020-03-30 14:21 | disposition home or self-care (01) | LOC: LAB 14:20 | PROVIDERS: ATTEND Surgery | DX: Z01.812 Encounter for preprocedural laboratory examination (principal); C50.912 Malignant neoplasm of unspecified site of left female breast; Z20.828 Contact with and (suspected) exposure to other viral communicable diseases | CPT/HCPCS: 81599 ==

== ENCOUNTER 2020-04-02 08:47 | Day surgery (SDC) | payer MEDICARE, OTHER ==
[~2020-04-02 08:47] MED LIST changes: -BUFFERED LIDOCAINE 10 ML SYRINGE ONE; +CEFAZOLIN SODIUM IN 0.9 % NACL 2 GM/100 ML BAG IV ONE; +SODIUM CHLORIDE 0.9% 100ML 100 ML IV ONE
[2020-04-02] MEDS ORDERED: PROPOFOL 200 MG/20 ML VIAL IVP ONE (08:48)
[2020-04-02] MEDS ORDERED: fentaNYL 100 MCG/2 ML VIAL IVP ONE (08:48)
[2020-04-02] MEDS ORDERED: DEXAMETHASONE 4 MG/ML VIAL IVP ONE (08:48)
[2020-04-02] MEDS ORDERED: ONDANSETRON 4 MG/2 ML VIAL IVP ONE (08:48)
[2020-04-02] MEDS ORDERED: LIDOCAINE-MPF 2% 5 ML VIAL IM ONE (08:48)
[2020-04-02] MEDS ORDERED: BUFFERED LIDOCAINE 10 ML SYRINGE ONE (08:59)
[2020-04-02] MEDS ORDERED: LIDOCAINE 1% 10 ML MDV SUBQ ONE ×2 (10:38)
[2020-04-02] MEDS ORDERED: BUPIVACAINE 0.5%-EPI 1:200000 PF 30 ML VIAL SUBQ ONE ×2 (10:38)
[2020-04-02] MEDS ORDERED: LACTATED RINGERS 1,000 ML IV ONE ×4 (10:39→15:50)
[2020-04-02] MEDS ORDERED: BUPIVACAINE 0.5% PF 30 ML VIAL ONE (11:08)
[2020-04-02] MEDS ORDERED: LIDOCAINE 1%-EPI 1:100000 20 ML MDV ONE (11:08)
--- NOTE | 2020-04-02 13:06 | ANESTHESIA ---
Pre-Anesthesia VS, & Labs - Diagnosis left breast cancer - Procedure left breast lumpectome w/ax node dissection Vital Signs: Temp Pulse Resp BP Pulse Ox 36.6 C 88 16 135/80 H 99 04/02/20 08:58 04/02/20 08:58 04/02/20 08:58 04/02/20 08:58 04/02/20 08:58 Height 5 ft 1 in Weight (kg) 76.2 kg Body Mass Index 33.4 - NPO >8 hours - Is Patient ?: No - Lab Results Lab results reviewed: Yes Home Medications and Allergies Home Medications: Ambulatory Orders Lactobacillus Acidophilus [Probiotic Acidophilus] 1 each PO DAILY 03/20/20 Multivitamin 1 each PO DAILY 03/20/20 Levothyroxine [Synthroid] 112 mcg PO QDAC 08/19/16 Calcium Carbonate [Calcium] 600 mg PO DAILY 03/20/20 Lactobacillus Acidophilus [Probiotic Acidophilus] 1 each PO DAILY 03/20/20 Multivitamin 1 each PO DAILY 03/20/20 Allergies/Adverse Reactions: Allergies Allergy/AdvReac Type Severity Reaction Status Date / Time No Known Drug Allergies Allergy Verified 02/06/20 09:16 Anes History & Medical History - Anesthetic History Anesthesia Complications: reports: No previous complications - Medical History Cardiovascular: reports: None Pulmonary: reports: COPD (mild) Gastrointestinal: reports: Crohn's disease, Other Urinary: reports: Kidney stones Neuro: reports: None Musculoskeletal: reports: Osteoarthritis Endocrine/Autoimmune: reports: HyPERthyroidism, HyPOthyroidism Skin: reports: Rosacea Smoking Status: Never smoker - Surgical History General: Cholecystectomy, Colonoscopy, Other Eyes Ears Nose Throat (EENT): Tonsil/Adenoidectomy Exam General: Alert, Oriented x3, Cooperative Dental: WNL Mouth Openin Fingerbreadth Neck Mobility: Normal Mallampati classification: I Thyromental Distance: 4-6 cm Respiratory: Lungs clear Cardiovascular: Regular rate Plan Anesthesia Type: General Consent for Procedure(s) Verified and Reviewed: Yes Code Status: Attempt Resuscitation ASA classification: 2-Mild systemic disease Is this case an emergency?: No
[2020-04-02] MEDS: BUFFERED LIDOCAINE 10 ML SYRINGE IU ONE ×2 (14:10→14:11)
--- NOTE | 2020-04-02 15:26 | OPERATIVE REPORT ---
Operative Report - General Procedure Date: 04/02/20 Planned Procedure: Left breast lumpectomy and axillary dissection Pre-Op Diagnosis: Locally advanced left breast cancer status post neoadjuvant chemotherapy Procedure Performed: Left breast lumpectomy and axillary dissection Post Op Diagnosis: Same - Procedure Note Primary Surgeon: Kory Anesthesia Provider: BONILLA Nair Anesthesia Technique: General LMA, Local Pathology: 1. Left breast mass and level 1 and 2 axillary dissection 2. Additioinal supero-medial margin IV Fluids (mL): 900 Estimated Blood Loss (mL): 50 Drain/Tube Type: Cameron drain (19 F in the left axilla) Findings: No migration of radioactive isotope- no sentinel node identified Complications: Wires both dislodged prior to the start of the procedure Anterior clip never identified - Other Other Information/Narrative: After obtaining informed consent, the patient is brought to the operating room and placed in the supine position on the operating table. Following successful induction of general endotracheal anesthesia, appropriate padding of all bony prominences, and placement appropriate monitors, the left chest and axilla were prepped and draped in the standard surgical fashion. A timeout was held per scope protocol. All elements of the surgical safety checklist were followed before, during, and after the procedure. In examination of the left axilla, we noted immediately that only the very tip of the inferior wire was in place in the anterior wall I could see both skin defects and so we elected to continue without repeat localization. We began by using the neoprobe to try to identify an area of radioisotope uptake. Unfortunately, the radioisotope was seen not to migrate beyond the nipple injection site. We were not not able to identify a sentinel node. We elected to proceed with level 1 and 2 axillary dissection. The patient has had a previously biopsy-proven positive node that was the site of the most inferior localizing wire.An incision was created in the axillary fold as this was a very upper outer quadrant malignancy. This was carried down through the skin and subcutaneous tissue. The tissue of the upper outer quadrant was gently liberated from the overlying dermis and underlying muscle using mixture of sharp dissection and cautery. Level 1 and 2 of the axillary fat pad were removed. All palpably enlarged or abnormal nodes were taken with the specimen.All a ferret and each parent vasculature and lymphatics were addressed with hemoclips prior to division. The specimen was removed from the underlying pectoralis muscle to include the fascia of the muscle. It was marked with a short stitch superior and long stitch lateral and submitted to specimen radiograph. The radiologist called back into the room noting that only the posterior clip was identified. This was the clip associated with a node but not the mass. I elected to take an additional superior medial margin. This was done by gently grasping the breast tissue and liberating it sharply from the overlying dermis and underlying muscle. This included an area of scarred and abnormal tissue near the chest wall but I believe to be the site of the previous cancer. A very small amount of pectoralis muscle was taken with this specimen. The wound was then checked for hemostasis. The specimen was marked for orientation and is submitted to specimen radiograph. In the meantime, the incision was was irrigated with warm water and aspirated free of all fluid and particulate matter it was addressed with cautery and clips for hemostasis. The radiologist did return a call to the room stating that it appeared that the lesion was in the specimen but the clip was not. It was felt that the clip was probably dislodged when the wire was dislodged. Therefore we elected to conclude the procedure.Due to the large defect and the axillary dissection, I elected to place a 19 Ni[place] Cameron drain in the axilla extending into the left breast defect. This was brought out inferiorly and sewn into place. The wound was then checked for hemostasis it was closed in 2 layers with Vicryl and Monocryl suture.Dermabond was applied to the skin. All sponge, needle, and instrument counts were correct at the conclusion of the case. The patient was allowed awaken from anesthesia without difficulty and taken to the postanesthesia care unit in good condition.
[2020-04-02] MEDS ORDERED: ONDANSETRON 4 MG/2 ML VIAL IVP PRN (15:35)
[2020-04-02] MEDS ORDERED: IBUPROFEN 600 MG TABLET PO PRN (15:35)
[2020-04-02] MEDS ORDERED: oxyCODONE 5 MG TABLET PO PRN (15:35)
[2020-04-02] MEDS ORDERED: ACETAMINOPHEN 325 MG TABLET PO PRN (15:35)
[2020-04-02] MEDS: HYDROmorphone 1 MG/ML CARPUJECT ONE ×3 (15:42→15:55)
--- NOTE | 2020-04-02 16:08 | Nuclear Medicine Report ---
PROCEDURE: Lymph Node Scintigraphy INDICATIONS: LEFT BREAST CA RADIOPHARMACEUTICAL: 0.5-1.0 mCi Millipore filtered Tc-99m sulfur colloid. TECHNIQUE: The area around the nipple was prepped and draped in a sterile fashion. Tc-99m sulfur colloid was in jected intra-dermally in the outer edge of the areola in the left breast. Images were obtained subse quently. A body contour outline was obtained. FINDINGS: There is/are no lymph node(s) in the ipsilateral axilla, which is marked on the skin and the images f or referring physician. IMPRESSION: Administration of radiotracer into the left breast periareolar region for intra-operativ e sentinel lymph node localization. Reviewed by: Marily Conde MD on 04/02/2020 4:07 PM PDT Approved by: Marily Conde MD on 04/02/2020 4:07 PM PDT Station ID: [id number]
[2020-04-02] MEDS ORDERED: ONDANSETRON 4 MG/2 ML VIAL ONE (16:51)
[2020-04-02 18:16] VITALS: BP 118/76
--- NOTE | 2020-04-05 11:06 | Mammography Report ---
MAMMOGRAPHY GUIDED WIRE LOCALIZATION LEFT BREAST: 04/02/2020 CLINICAL: Pre-op wire localization 2nd wire. No prior exams were available for correlation. A wire localization using mammography guidance was performed for the marker clip located in the left breast at 2 o'clock posterior depth. This was described on the previous mammography and ultrasound r eports. The skin was prepped in the usual manner. Topical and local anesthetic was administered to the access site. A small incision was made in the breast. The localization was approached from the caudocranial aspect. A J-hook wire was inserted adjacent to the marker under mammography guidance. A sterile dressing was applied to the access site. IMPRESSION: WIRE LOCALIZATION Wire localization for the marker clip in the left breast at 2 o'clock posterior depth was successful. This exam was interpreted at Station ID: [id number]. Sarah jefferson/drake:04/04/2020 15:45:17 copy to: SULEIMAN RAMOS BI-RADS CATEGORY: () - Unspecified - other recall n/a LATERALITY: (B)
--- NOTE | 2020-04-05 11:06 | Mammography Report ---
SPECIMEN LEFT BREAST: 04/02/2020 CLINICAL: Left breast specimen. Correlation is made to exams dated: 09/28/2019 mammogram, 10/21/2019 stereotactic biopsy, 12/23/2017 m ammogram - [facility], and 04/02/2020 localization - [facility]. A wire localization specimen was imaged for the previous biopsy site located in the left breast at 2 o'clock posterior depth. No biopsy clip or wire was present in the specimen. A second speciman, rep ortedly superior medial to the initial specimen was acquired, also without clip or wire. Recommendat ion was made for additional tissue from inferior medial aspect from initial specimen, if surigical ne ed or ifclip was not otherwise idnetified. IMPRESSION: SPECIMEN The imaged specimen does not include biopsy clip. This exam was interpreted at Station ID: [id number]. Sarah Cabrera M.D. [facility]/:04/04/2020 15:48:13 copy to: SULEIMAN RAMOS BI-RADS CATEGORY: () - Unspecified - other recall n/a LATERALITY: (B)
--- NOTE | 2020-04-05 11:06 | Mammography Report ---
MAMMOGRAPHY GUIDED WIRE LOCALIZATION LEFT BREAST: 04/02/2020 CLINICAL: Left breast wire localization x 2 / pre op for left breast lumpectomy. Correlation is made to exams dated: 11/08/2019 breast MRI - [facility], 09/28/2019 ma mmogram, 10/21/2019 stereotactic biopsy, 12/23/2017 mammogram, and 12/01/2017 mammogram - [facility]. A wire localization using mammography guidance was performed for the area of pleomorphic calcificatio ns located in the left breast at 1 o'clock posterior depth. The skin was prepped in the usual manner . Topical and local anesthetic was administered to the access site. A small incision was made in th e breast. The localization was approached from the lateral aspect. A J-hook wire was inserted into the targeted area under mammography guidance. A sterile dressing was applied to the access site. IMPRESSION: WIRE LOCALIZATION Wire localization for the area of pleomorphic calcifications in the left breast at 1 o'clock posterio r depth was successful. This exam was interpreted at Station ID: [id number]. Sarah Cabrera M.D. [facility]/:04/04/2020 15:38:37 copy to: SULEIMAN RAMOS BI-RADS CATEGORY: () - Unspecified - other recall n/a LATERALITY: (B)
--- NOTE | 2020-04-05 11:06 | Mammography Report ---
SPECIMEN LEFT BREAST: 04/02/2020 CLINICAL: Left breast specimen. Correlation is made to exams dated: 04/02/2020 localization - [facility], 11/08/2019 breast MRI - [facility], 10/21/2019 stereotactic biopsy, 09/28/2019 mammogram, and mammogram - [facility]. A surgical specimen was imaged for the area of pleomorphic calcifications located in the left breast at 1 o'clock posterior depth. IMPRESSION: SPECIMEN The imaged specimen includes the calcifications and biopsy clips. This exam was interpreted at Station ID: [id number]. Sarah Cabrera M.D. [facility]/:04/04/2020 15:42:44 copy to: SULEIMAN RAMOS BI-RADS CATEGORY: () - Unspecified - other recall n/a LATERALITY: (B)
== END 2020-04-02 08:48 | disposition home or self-care (01) ==
LOC: SDS 08:47
PROVIDERS: ATTEND Surgery
PROC: 07B60ZX Excision of Left Axillary Lymphatic, Open Approach, Diagnostic (ICD-10-PCS; 2020-04-02)
PROC: 0HBU0ZZ Excision of Left Breast, Open Approach (ICD-10-PCS; principal; 2020-04-02 11:30)
DX: C50.412 Malignant neoplasm of upper-outer quadrant of left female breast (principal); J44.9 Chronic obstructive pulmonary disease, unspecified; E03.9 Hypothyroidism, unspecified; F41.9 Anxiety disorder, unspecified; K50.90 Crohn's disease, unspecified, without complications; E66.9 Obesity, unspecified; Z68.33 Body mass index [BMI] 33.0-33.9, adult
CPT/HCPCS: 19281; 19282; 19301; 38525; 76098; 78195; A9541; J0690; J1170; J7120

== ENCOUNTER 2020-04-25 09:11 | Outpatient (CLI) | payer MEDICARE, OTHER | END 2020-04-25 09:12 | disposition home or self-care (01) | LOC: DI 09:11 | PROVIDERS: ATTEND Internal Medicine Hematology & Oncology | DX: C50.612 Malignant neoplasm of axillary tail of left female breast (principal); I27.20 Pulmonary hypertension, unspecified | CPT/HCPCS: 93306 ==

== ENCOUNTER 2020-07-17 08:54 | Outpatient (CLI) | payer MEDICARE, OTHER | END 2020-07-17 08:55 | disposition home or self-care (01) | LOC: DI 08:54 | PROVIDERS: ATTEND Internal Medicine Hematology & Oncology | DX: I51.7 Cardiomegaly (principal) | CPT/HCPCS: 93306 ==

== ENCOUNTER 2020-10-26 19:50 | Outpatient (CLI) | payer MEDICARE, OTHER | END 2020-10-26 19:51 | disposition home or self-care (01) | LOC: COV 19:50 | PROVIDERS: ATTEND Surgery | DX: Z01.812 Encounter for preprocedural laboratory examination (principal); Z20.822 Contact with and (suspected) exposure to COVID-19; K22.70 Barrett's esophagus without dysplasia ==

== ENCOUNTER 2020-11-01 10:37 | Day surgery (SDC) | payer MEDICARE, OTHER ==
[2020-11-01] MEDS ORDERED: LACTATED RINGERS 1,000 ML IV ONE (10:40)
[2020-11-01] MEDS ORDERED: LIDOCAINE/PRILOCAINE 2.5% CREAM 5 GM TUBE TOP ONE (11:19)
[2020-11-01] MEDS ORDERED: BENZOCAINE/TETRACAINE/BUTAMBEN 20 GM TOP ONE ×2 (12:23→12:37)
[2020-11-01] MEDS ORDERED: LIDO GARGLE 30 ML BOTTLE TOP ONE ×2 (12:23→12:36)
[2020-11-01] MEDS ORDERED: LIDO GARGLE 30 ML BOTTLE ONE (12:32)
[2020-11-01] MEDS ORDERED: fentaNYL 100 MCG/2 ML VIAL ONE (12:33)
[2020-11-01] MEDS ORDERED: MIDAZOLAM 2 MG/2 ML VIAL ONE ×2 (12:33→12:54)
[2020-11-01 13:16] VITALS: BP 118/76
== END 2020-11-01 10:38 | disposition home or self-care (01) ==
LOC: SDS 10:37
PROVIDERS: ATTEND Surgery
PROC: 0DB48ZX Excision of Esophagogastric Junction, Via Natural or Artificial Opening Endoscopic, Diagnostic (ICD-10-PCS; principal; 2020-11-01 11:45)
DX: K22.2 Esophageal obstruction (principal); Z87.19 Personal history of other diseases of the digestive system; R51.9 Headache, unspecified; M54.2 Cervicalgia; K50.90 Crohn's disease, unspecified, without complications; Z90.49 Acquired absence of other specified parts of digestive tract; Z93.3 Colostomy status; J44.9 Chronic obstructive pulmonary disease, unspecified
CPT/HCPCS: 43239; A9270; J3490; J7120

== ENCOUNTER 2020-11-02 07:00 | Outpatient (CLI) | payer MEDICARE, OTHER ==
[2020-11-02 12:02] LABS: CREATININE 0.7 mg/dL (0.4-1.0)
== END 2020-11-02 23:59 | disposition home or self-care (01) ==
LOC: LAB 07:00
PROVIDERS: ATTEND Surgery
DX: C50.912 Malignant neoplasm of unspecified site of left female breast (principal); M54.2 Cervicalgia
CPT/HCPCS: 36415; 82565

== ENCOUNTER 2020-11-02 10:52 | Outpatient (CLI) | payer MEDICARE, OTHER ==
[2020-11-02] MEDS ORDERED: IOVERSOL 320 100 ML VIAL IVP ONE ×2 (11:11→14:33)
[2020-11-02] MEDS ORDERED: IOVERSOL 320 50 ML VIAL ONE (11:11)
--- NOTE | 2020-11-02 14:47 | CT Report ---
PROCEDURE: CERVICAL SPINE WO INDICATIONS: ACUTE NECK PAIN,LT BREAST INVASIVE DUCTAL CA,CROHN TECHNIQUE: Noncontrast 3 mm thick sections acquired from the skull base to the T4 level. Sagittal and coronal r eformats were then constructed. For radiation dose reduction, the following was used: automated exp osure control, adjustment of mA and/or kV according to patient size. COMPARISON: CT cervical spine 06/15/2016 FINDINGS: Image quality: Excellent. Bones: No fractures or dislocations. Visualized superior ribs are intact. There is straightening o f cervical curvature with trace anterolisthesis of C4 on C5, multilevel moderate to severe degenerati ve disc space narrowing most notable at C5-6 and C6-7. Multilevel disc bulges are present. Multilevel spinal stenosis is present, moderate to severe at C5-6 and C6-7, minimally progressive. Multilevel f oraminal narrowing is present severe at C5-6 and C6-7, minimally progressive. Soft tissues: Prevertebral soft tissues are normal in thickness. No paravertebral hematomas. No ap ical pneumothoraces. IMPRESSION: 1. Multilevel degenerative changes slightly progressive compared to 2016. 2. If concern exists for potential metastatic disease not readily visible on CT, MRI with and without contrast is recommended for further evaluation. Reviewed by: Sarah Cabrera MD on 11/02/2020 2:45 PM PST Approved by: Sarah Cabrera MD on 11/02/2020 2:45 PM PST Station ID: [id number]
--- NOTE | 2020-11-02 14:52 | CT Report ---
PROCEDURE: HEAD WO INDICATIONS: ACUTE NECK PAIN,LT BREAST INVASIVE DUCTAL CA,CROHN TECHNIQUE: Noncontrast 4.5 mm thick angled axial sections acquired from the foramen magnum to the vertex. For r adiation dose reduction, the following was used: automated exposure control, adjustment of mA and/or kV according to patient size. COMPARISON: Prior head CT dated 06/15/2016. Correlation is made with the accompanying cervical spine C T 11/02/2020. FINDINGS: Image quality: Excellent. CSF spaces: Basal cisterns are patent. No extra-axial fluid collections. Ventricles are normal in size and shape. Brain: There is a stable remote left frontal lobe infarction. No midline shift. No intracranial mas ses or hemorrhage. Bello-white matter interface is normal. Skull and face: Calvarium and visualized facial bones are intact, without suspicious lesions. Hyper ostosis frontalis is incidentally noted, which is not frankly abnormal for a female patient of this a ge. Sinuses: Visualized sinuses and mastoids are clear. IMPRESSION: Stable remote left frontal lobe infarction. Reviewed by: Juan Antonio Sparks MD on 11/02/2020 1:50 PM [facility] Approved by: Juan Antonio Sparks MD on 11/02/2020 1:50 PM [facility] Station ID: [id number]
--- NOTE | 2020-11-02 16:14 | CT Report ---
PROCEDURE: Abdomen/Pelvis W INDICATIONS: ACUTE NECK PAIN,LT BREAST INVASIVE DUCTAL CA,CROHN CONTRAST: IV CONTRAST: Optiray 320 ml: 100 PO CONTRAST: Optiray 320 ml50 TECHNIQUE: After the administration of IV and oral contrast, 5 mm thick sections acquired from the diaphragms to the symphysis. 5 mm thick coronal and sagittal reformats were acquired. For radiation dose reducti on, the following was used: automated exposure control, adjustment of mA and/or kV according to sina ent size. COMPARISON: CT dated 11/08/2019 FINDINGS: Image quality: Excellent. ABDOMEN: Lung bases: Mild right lung base scarring is present, as before. Lung bases are otherwise clear. He art size is normal. Solid organs: Liver and spleen are normal in size and enhancement. Gallbladder is surgically absent Biliary system is non dilated. Pancreas enhances normally. No adrenal nodules. Kidneys demonstra te normal size and enhancement, without hydronephrosis. Peritoneum and bowel: Small hiatal hernia. Bowel loops demonstrate normal wall thickness and caliber . No free fluid or air. Nodes and vessels: No retroperitoneal or mesenteric adenopathy by size criteria. Aorta and inferior vena cava are normal in size. Miscellaneous: A right lower quadrant ostomy is present with a parastomal bowel containing hernia, me asuring roughly 6 cm, as before. Left anterior abdominal pelvic wall hernia containing small bowel lo ops is present, as before, currently measuring roughly 8 cm. There is no evidence of associated bowel strangulation, nor obstruction. PELVIS: Genitourinary: Bladder wall thickness is normal. Miscellaneous: No inguinal hernias or adenopathy. Bones: No suspicious bony lesions. No vertebral body compression fractures. IMPRESSION: 1. No evidence of malignancy. 2. No change in abdominal wall hernias. Reviewed by: Marily Conde MD on 11/02/2020 4:12 PM PST Approved by: Marily Conde MD on 11/02/2020 4:12 PM PST Station ID: [id number]
== END 2020-11-02 10:53 | disposition home or self-care (01) ==
LOC: DI 10:52
PROVIDERS: ATTEND Surgery
DX: C50.912 Malignant neoplasm of unspecified site of left female breast (principal); M54.2 Cervicalgia; M43.12 Spondylolisthesis, cervical region; M50.322 Other cervical disc degeneration at C5-C6 level; M48.02 Spinal stenosis, cervical region; M47.812 Spondylosis without myelopathy or radiculopathy, cervical region; K50.90 Crohn's disease, unspecified, without complications
CPT/HCPCS: 70450; 72125; 74177; Q9967

== ENCOUNTER 2020-12-18 09:04 | Outpatient (CLI) | payer MEDICARE, OTHER | END 2020-12-18 09:05 | disposition home or self-care (01) | LOC: DI 09:04 | PROVIDERS: ATTEND Physician Assistant | DX: C50.912 Malignant neoplasm of unspecified site of left female breast (principal) | CPT/HCPCS: 93306 ==

== ENCOUNTER 2021-04-05 10:12 | Outpatient (CLI) | payer MEDICARE, OTHER ==
--- NOTE | 2021-04-08 13:44 | Mammography Report ---
BILATERAL DIGITAL DIAGNOSTIC MAMMOGRAM 3D/2D: 04/05/2021 CLINICAL: Post left lumpectomy and radiation therapy. Comparison is made to exams dated: 09/28/2019 mammogram, 12/01/2017 mammogram - [facility], 07/16/2016 mammogram - [facility], and 03/27/2020 breast MRI - [facility]. The tissue of both breasts is heterogeneously dense. This may lower the sensitivity of mammograp hy. There are benign post operative findings in the left breast. No significant masses, calcifications, or other findings are seen in either breast. There has been no significant interval change. IMPRESSION: BENIGN There is no mammographic evidence of malignancy. A 1 year screening mammogram is recommended. This exam was interpreted at Station ID: [id number]. NOTE: For mammograms, a report in lay terms will be sent to the patient. Approximately 15% of breast malignancies will not be visualized mammographically. In the management of a palpable breast mass, a negative mammogram must not discourage biopsy of a clinically suspicious lesion. Electronically Signed By: Alex giraldo/penrad:04/05/2021 11:15:25 copy to: SULEIMAN CARREON BI-RADS Category 2: Benign Finding(s) 3342F PARENCHYMAL PATTERN: (D) - The breast(s) demonstrate(s) heterogeneously dense fibroglandular singh moore. BI-RADS CATEGORY: (2) - 2 RECOMMENDATION: (ANNUAL) - Recommend routine annual screening mammography. [id number] 1 year screening LATERALITY: (B)
== END 2021-04-05 10:13 | disposition home or self-care (01) ==
LOC: DI 10:12
PROVIDERS: ATTEND Surgery
DX: Z09 Encounter for follow-up examination after completed treatment for conditions other than malignant neoplasm (principal); Z85.3 Personal history of malignant neoplasm of breast

== ENCOUNTER 2021-04-05 11:25 | Outpatient (CLI) | payer MEDICARE, OTHER ==
--- NOTE | 2021-04-05 13:57 | XRAY Report ---
PROCEDURE: Knee 3 View RT INDICATIONS: KNEE JOINT PAIN X 3 MTHS TECHNIQUE: 3 views of the right knee(s) were acquired. COMPARISON: None. FINDINGS: Bones: No fractures or dislocations. No suspicious bony lesions. Severe medial and moderate lateral compartmental joint space narrowing with subchondral sclerosis and marginal osteophyte present. Diff usely decreased osseous mineralization present. Moderate patellofemoral joint space narrowing noted a s well. Soft tissues: No joint effusion. No suspicious soft tissue calcifications. IMPRESSION: 1. Severe tricompartmental osteoarthrosis and osteopenia. Reviewed by: Kirby Lehman MD on 04/05/2021 12:56 PM [facility] Approved by: Kirby Lehman MD on 04/05/2021 12:56 PM [facility] Station ID: [id number]
== END 2021-04-05 11:26 | disposition home or self-care (01) ==
LOC: DI 11:25
PROVIDERS: ATTEND Surgery
DX: M17.11 Unilateral primary osteoarthritis, right knee (principal); M85.861 Other specified disorders of bone density and structure, right lower leg; Z09 Encounter for follow-up examination after completed treatment for conditions other than malignant neoplasm; Z85.3 Personal history of malignant neoplasm of breast

== ENCOUNTER 2021-08-30 08:54 | Outpatient (CLI) | payer MEDICARE, OTHER ==
--- NOTE | 2021-08-30 14:52 | Nuclear Medicine Report ---
PROCEDURE: Bone Whole Body INDICATIONS: BREAST CANCER RADIOPHARMACEUTICAL: 25.5 mCi Tc-99m MDP IV. TECHNIQUE: Delayed whole-body scintigrams were obtained approximately 3-4 hours after intravenous injection of r adiotracer. Anterior and posterior views were acquired from vertex to feet. Additional left and rig ht oblique views of the neck were obtained. COMPARISON: None available. FINDINGS: There is degenerative uptake of radiotracer at the acromioclavicular and glenohumeral join ts, right greater than left knee joints, bilateral forefeet, as well as the cervical spine. No increa sed radiotracer uptake to indicate facet disease. IMPRESSION: No evidence of metastatic disease. Reviewed by: Marily Conde MD on 08/30/2021 2:51 PM [facility] Approved by: Marily Conde MD on 08/30/2021 2:51 PM [facility] Station ID: [id number]
== END 2021-08-30 08:55 | disposition home or self-care (01) ==
LOC: DI 08:54
PROVIDERS: ATTEND Internal Medicine Hematology & Oncology
DX: C50.412 Malignant neoplasm of upper-outer quadrant of left female breast (principal); C50.612 Malignant neoplasm of axillary tail of left female breast
CPT/HCPCS: 78306

== ENCOUNTER 2022-05-13 09:15 | Outpatient (CLI) | payer MEDICARE, OTHER ==
--- NOTE | 2022-05-14 09:51 | Mammography Report ---
BILATERAL DIGITAL SCREENING MAMMOGRAM 3D/2D: 05/13/2022 CLINICAL: Routine screening. Personal history of left breast cancer. Comparison is made to exams dated: 04/05/2021 mammogram - [facility], 09/28/2019 ma mmogram, 12/23/2017 mammogram, 12/01/2017 mammogram - [facility], and 07/16/2016 mammo gram - [facility]. The tissue of both breasts is heterogeneously dense. This may l ower the sensitivity of mammography. There are benign post operative findings in the left breast. No significant masses, calcifications, or other findings are seen in either breast. There has been no significant interval change. IMPRESSION: BENIGN There is no mammographic evidence of malignancy. A 1 year screening mammogram is recommended. This exam was interpreted at Station ID: [id number]. NOTE: For mammograms, a report in lay terms will be sent to the patient. Approximately 15% of breast malignancies will not be visualized mammographically. In the management of a palpable breast mass, a negative mammogram must not discourage biopsy of a clinically suspicious lesion. Electronically Signed By: Xi quezada/drake:05/13/2022 11:57:00 copy to: SULEIMAN CARREON BI-RADS Category 2: Benign Finding(s) 3342F PARENCHYMAL PATTERN: (D) - The breast(s) demonstrate(s) heterogeneously dense fibroglandular parenchy ma. BI-RADS CATEGORY: (2) - 2 RECOMMENDATION: (ANNUAL) - Recommend routine annual screening mammography. [id number] 1 year screening LATERALITY: (B)
== END 2022-05-13 09:16 | disposition home or self-care (01) ==
LOC: DI 09:15
DX: Z12.31 Encounter for screening mammogram for malignant neoplasm of breast (principal); Z85.3 Personal history of malignant neoplasm of breast

== ENCOUNTER 2023-05-13 08:44 | Outpatient (CLI) | payer MEDICARE, OTHER ==
--- NOTE | 2023-05-14 09:21 | Mammography Report ---
BILATERAL DIGITAL SCREENING MAMMOGRAM 3D/2D: 05/13/2023 CLINICAL: Routine screening. Personal history of left breast cancer. Comparison is made to exams dated: 05/13/2022 mammogram, 04/05/2021 mammogram, 04/02/2020 localization - [facility], 09/28/2019 mammogram, 12/23/2017 mammogram, and 12/01/2017 mammogram - [facility]. Both breasts are heterogeneously dense, which may obscure small masses (category c / 51-75% glandular tissue). There are benign post operative findings in the left breast. No significant masses, calcifications, or other findings are seen in either breast. There has been no significant interval change. IMPRESSION: BENIGN There is no mammographic evidence of malignancy. A 1 year screening mammogram is recommended. This exam was interpreted at Station ID: [id number]. NOTE: For mammograms, a report in lay terms will be sent to the patient. Approximately 15% of breast malignancies will not be visualized mammographically. In the management of a palpable breast mass, a negative mammogram must not discourage biopsy of a clinically suspicious lesion. Electronically Signed By: Siena simpson/drake:05/13/2023 16:18:33 copy to: SULEIMAN RAMOS letter sent: No_Letter ACR BI-RADS Category 2: Benign Finding(s) 3342F PARENCHYMAL PATTERN: (D) - The breast(s) demonstrate(s) heterogeneously dense fibroglandular parmanpreety ma. BI-RADS CATEGORY: (2) - 2 Mammogram [id number] 1 year screening LATERALITY: (B)
== END 2023-05-13 08:45 | disposition home or self-care (01) ==
LOC: DI 08:44
DX: Z12.31 Encounter for screening mammogram for malignant neoplasm of breast (principal); Z85.3 Personal history of malignant neoplasm of breast

== ENCOUNTER 2023-06-22 09:45 | Outpatient (CLI) | payer MEDICARE, OTHER ==
--- NOTE | 2023-06-22 17:28 | DEXA Report ---
PROCEDURE: Dexa Spine and/or Hip INDICATIONS: POST MENOPAUSAL TECHNIQUE: Dual energy x-ray absorptiometry (DXA) was performed on a Storee System. Regions measur ed are the AP Spine, femoral neck, and if needed forearm. COMPARISON: None FINDINGS: Lumbar Spine: Bone Mineral Density 1.171 g/cm/cm,T score -0.1. Left Femoral Neck: Bone Mineral Density 0.789 g/cm/cm, T score -1.8. Left Hip: Bone Mineral Density 0.825 g/cm/cm,T score -1.5. (T score greater or equal to -1.0: NORMAL) (T score from -1.1 to -2.4: OSTEOPENIA) (T score less than or equal to -2.5 to: OSTEOPOROSIS) Impression: By WHO criteria, this patient has low bone density (osteopenia). Patients with diagnosis of osteoporosis or osteopenia should have regular bone mineral density assess ment. For those eligible for Medicare, routine testing is allowed once every 2 years. Testing frequ ency can be increased for patients who have rapidly progressing disease or for those who are receivin g medical therapy to restore bone mass. Reviewed by: Jayy Mcdonough MD on 06/22/2023 5:27 PM PDT Approved by: Jayy Mcdonough MD on 06/22/2023 5:27 PM PDT Station ID: [id number]
== END 2023-06-22 09:46 | disposition home or self-care (01) ==
LOC: DI 09:45
PROVIDERS: ATTEND Internal Medicine
DX: N95.8 Other specified menopausal and perimenopausal disorders (principal); M85.80 Other specified disorders of bone density and structure, unspecified site

== ENCOUNTER 2023-07-16 07:49 | Day surgery (SDC) | payer MEDICARE, OTHER ==
[~2023-07-16 07:49] MED LIST changes: -CEFAZOLIN SODIUM IN 0.9 % NACL 2 GM/100 ML BAG IV ONE; +CYCLOPENTOLATE 1% OPHTH DROPS 2 ML ONE; +KETOROLAC 0.45% OPHTH DROPS ONE; +PHENYLEPHRINE 2.5% OPHTH 2 ML DROPS ONE; +PROPARACAINE 0.5% OPHTH DROPS 15 ML ONE; -SODIUM CHLORIDE 0.9% 100ML 100 ML IV ONE
[2023-07-16] MEDS ORDERED: LACTATED RINGERS 1,000 ML IV ONE (08:08)
[2023-07-16 08:23] VITALS: O2SAT 96
--- NOTE | 2023-07-16 08:41 | ANESTHESIA ---
Pre-Anesthesia VS, & Labs - Diagnosis R senile combined cataract - Procedure R extraction catarct w/IOL Vital Signs: Temp Pulse Resp BP Pulse Ox O2 Flow Rate 36.5 C 86 18 149/86 H 96 07/16/23 08:11 07/16/23 08:11 07/16/23 08:11 07/16/23 08:11 07/16/23 08:11 Height: 5 ft 1 in Weight (kg): 85 kg Body Mass Index: 35.4 BMI Classification: Obese - NPO >8 hours - Is Patient ?: No - Lab Results Lab results reviewed: Yes Home Medications and Allergies Levothyroxine [Synthroid] 112 mcg PO QDAC 08/19/16 Lactobacillus Acidophilus [Probiotic Acidophilus] 1 each PO DAILY 03/20/20 Multivitamin 1 each PO DAILY 03/20/20 Calcium Carbonate [Elemental Calcium] 600 mg PO DAILY 10/25/20 Ibuprofen [Motrin] 600 mg PO Q6H PRN 10/25/20 [place]-3/Dha/Epa/Fish Oil [Fish Oil 1,000 mg Softgel] 1 each PO DAILY 10/25/20 Vitamin B Complex/Folic Acid [B-Complex Tablet] 1 tab PO DAILY 10/25/20 methocarbamoL [Robaxin-750] 750 mg PO BID PRN 10/25/20 Allergies/Adverse Reactions: Allergies Allergy/AdvReac Type Severity Reaction Status Date / Time No Known Drug Allergies Allergy Verified 05/06/21 17:07 Anes History & Medical History - Anesthetic History Anesthesia Complications: reports: No previous complications Family history of Anesthesia Complications: Denies Family history of Malignant Hyperthermia: Denies - Medical History Cardiovascular: reports: None Pulmonary: reports: COPD Gastrointestinal: reports: Hiatal hernia, Crohn's disease, Other Urinary: reports: Kidney stones Neuro: reports: None Musculoskeletal: reports: Osteoarthritis Endocrine/Autoimmune: reports: HyPERthyroidism, HyPOthyroidism Skin: reports: Rosacea Smoking Status: Never smoker History of Cancer?: Yes (breast) - Surgical History General: reports: Cholecystectomy, Bowel surgery, Colonoscopy, EGD, Other Eyes Ears Nose Throat (EENT): reports: Tonsil/Adenoidectomy Exam General: Alert, Oriented x3, Cooperative Mouth Openin Fingerbreadth Neck Mobility: Normal Mallampati classification: I Thyromental Distance: 4-6 cm Respiratory: Lungs clear, Normal breath sounds, No respiratory distress Cardiovascular: Regular rate Neurological: Normal speech Mental/Cognitive Status: Alert/Oriented X3, Normal for patient Cognitive Status: Within normal limits Plan Anesthesia Type: MAC Consent for Procedure(s) Verified and Reviewed: Yes Code Status: Attempt Resuscitation ASA classification: 3-Severe systemic disease Is this case an emergency?: No
[2023-07-16] MEDS ORDERED: BSS/LIDOCAINE/EPINEPHRINE 1 ML VIAL ONE (09:43)
[2023-07-16] MEDS ORDERED: TRIAMCIN/MOXIFLOX OPHTHALMIC 0.6 ML VIAL IO ONE ×2 (09:43→10:04)
[2023-07-16] MEDS ORDERED: TIMOLOL 0.5% OPHTH DROPS ONE (09:43)
[2023-07-16] MEDS ORDERED: BRIMONIDINE 0.2% OPHTH DROPS 5 ML ONE (09:43)
[2023-07-16] MEDS ORDERED: EPINEPHrine 1 MG/ML AMP ONE ×2 (09:43→09:46)
[2023-07-16] MEDS ORDERED: MIDAZOLAM 2 MG/2 ML VIAL ONE (09:47)
[2023-07-16] MEDS ORDERED: BRIMONIDINE 0.2% OPHTH DROPS 5 ML OPTH ONE (10:03)
[2023-07-16] MEDS ORDERED: BSS/LIDOCAINE/EPINEPHRINE 1 ML SYRINGE IO ONE (10:04)
[2023-07-16] MEDS ORDERED: TIMOLOL 0.5% OPHTH DROPS OPTH ONE (10:04)
[2023-07-16] MEDS ORDERED: EPINEPHrine 1 MG/ML AMP IR ONE (10:04)
[2023-07-16] MEDS ORDERED: VANCOMYCIN OPHTH (TOPICAL) 10 MG/ML SYRINGE TOP ONE (10:04)
[2023-07-16] MEDS ORDERED: PROPARACAINE 0.5% OPHTH DROPS 15 ML EACHEYE ONE (10:04)
[2023-07-16] MEDS ORDERED: fentaNYL 100 MCG/2 ML VIAL ONE (10:06)
[2023-07-16] MEDS ORDERED: LACTATED RINGERS 650 ML IV ONE (10:12)
--- NOTE | 2023-07-16 10:15 | OPERATIVE REPORT ---
Operative Report - Other Other Information/Narrative: Date of Surgery: 07/16/23 Preop Dx: Visually significant cataract right eye. This was the first cataract surgery. Postop Dx: Same Procedure: Phacoemulsification with posterior chamber intraocular lens implant right eye Surgeon: Dr. Coy Wheeler Anesthesia: Monitored anesthesia care Complications: None Operative Indications: This is a 78-year-old F with progressive vision loss in the right eye due to 3+ nuclear sclerotic and 3+ cortical cataract. Best corrected visual acuity was 20/40 with glare to hand motion vision in the right eye. Indications for surgery were: - Overall decrease in vision - Difficulty seeing words on a computer screen - Difficulty reading - Difficulty seeing words, closed captions, or game scores on TV - Difficulty seeing street signs - Difficulty driving in low light or at night - Difficulty driving at night because of headlights from other vehicles - Difficulty with glare or bright lights in any situation The patient was consented at length concerning the risks and benefits of cataract surgery after which the patient [facility] a [facility] Operative Procedure: The patient was taken into OR#3 and placed under monitored anesthesia care. A surgical time-out was conducted confirming correct patient, correct procedure, and correct surgical site. The patient was given topical anesthesia and then prepped and draped in the usual sterile fashion. The eye was entered at the 6 and 3 oclock positions. Intracameral Shugarcaine was injected into the anterior chamber followed by a dispersive viscoelastic. A continuous-tear curvilinear capsulorhexis was performed. The nucleus was hydrodissected and phacoemulsified. The cortex was evacuated using automated infusion and aspiration. A cohesive viscoelastic was injected into the capsular bag and a 21.0 diopter intraocular lens was inserted into the bag. Infusion and aspiration were used to evacuate the viscoelastic materials from the eye. The wounds were hydrated and the eye inflated to physiologic pressure using balanced salt solution. Approximately 0.25ml of a mixture of triamcinolone and moxifloxacin was injected trans-sclerally into the vitreous in the inferotemporal quadrant using a 30 gauge cannula. An additional 0.25ml of a mixture of triamcinolone and moxifloxacin was injected subconjunctivally in the superior quadrant for infection and inflammation prophylaxis. Wound integrity was checked with Weck-Jacqueline sponges. The patient was taken from the operating room in good condition and given post-op instructions.
--- NOTE | 2023-07-16 10:15 | ANESTHESIA POST OP EVALUATION ---
Anesthesia Post Eval - Post Anesthesia Eval Vitals: Last Vital Signs Temp 37.1 C 07/16/23 10:13 Pulse 72 07/16/23 10:13 Resp 16 07/16/23 10:13 BP 131/49 H 07/16/23 10:13 Pulse Ox 96 07/16/23 10:13 O2 Flow Rate CV Function Including HR & BP: Stable Pain Control: Satisfactory Nausea & Vomiting: Negative Mental Status: Baseline Respiratory Status: Airway Patent Hydration Status: Satisfactory Anesthesia Complications: None
[2023-07-16 10:20] VITALS: BP 120/85
== END 2023-07-16 07:50 | disposition home or self-care (01) ==
LOC: SDS 07:49
PROVIDERS: ATTEND Ophthalmology
DX: H25.811 Combined forms of age-related cataract, right eye (principal); J44.9 Chronic obstructive pulmonary disease, unspecified; E66.9 Obesity, unspecified; Z68.35 Body mass index [BMI] 35.0-35.9, adult
CPT/HCPCS: 66984; A9270; J3490; J7120

== ENCOUNTER 2023-08-04 11:35 | Outpatient (CLI) | payer MEDICARE, OTHER | END 2023-08-04 11:36 | disposition home or self-care (01) | LOC: LAB 11:35 | PROVIDERS: ATTEND Internal Medicine | DX: E03.9 Hypothyroidism, unspecified (principal) | CPT/HCPCS: 36415; 84443 ==

== ENCOUNTER 2023-09-24 06:44 | Day surgery (SDC) | payer MEDICARE, OTHER ==
[~2023-09-24 06:44] MED LIST changes: -CYCLOPENTOLATE 1% OPHTH DROPS 2 ML ONE; -PROPARACAINE 0.5% OPHTH DROPS 15 ML ONE
[2023-09-24] MEDS ORDERED: LACTATED RINGERS 1,000 ML IV ONE ×2 (06:51→08:22)
[2023-09-24] MEDS: PROPARACAINE 0.5% OPHTH DROPS 15 ML ONE ×2 (07:04→07:05)
[2023-09-24] MEDS ORDERED: CYCLOPENTOLATE 1% OPHTH DROPS 2 ML LEFTEYE ONE (07:07)
[2023-09-24] MEDS ORDERED: MIDAZOLAM 2 MG/2 ML VIAL ONE (07:38)
[2023-09-24] MEDS ORDERED: TRIAMCIN/MOXIFLOX OPHTHALMIC 0.6 ML VIAL IO ONE ×2 (07:40→07:58)
--- NOTE | 2023-09-24 07:40 | ANESTHESIA ---
Pre-Anesthesia VS, & Labs - Diagnosis senile combined cataract - Procedure left cataract extraction with iol Vital Signs: Temp Pulse Resp BP Pulse Ox O2 Flow Rate 36.9 C 75 18 137/66 H 98 09/24/23 06:51 09/24/23 06:51 09/24/23 06:51 09/24/23 06:51 09/24/23 06:51 Height: 5 ft 1 in Weight (kg): 86.5 kg Body Mass Index: 36.0 BMI Classification: Obese - NPO >8 hours - Is Patient ?: No Home Medications and Allergies Levothyroxine [Synthroid] 112 mcg PO QDAC 08/19/16 Lactobacillus Acidophilus [Probiotic Acidophilus] 1 each PO DAILY 03/20/20 Multivitamin 1 each PO DAILY 03/20/20 Calcium Carbonate [Elemental Calcium] 600 mg PO DAILY 10/25/20 Ibuprofen [Motrin] 600 mg PO Q6H PRN 10/25/20 [place]-3/Dha/Epa/Fish Oil [Fish Oil 1,000 mg Softgel] 1 each PO DAILY 10/25/20 Vitamin B Complex/Folic Acid [B-Complex Tablet] 1 tab PO DAILY 10/25/20 Allergies/Adverse Reactions: Allergies Allergy/AdvReac Type Severity Reaction Status Date / Time No Known Drug Allergies Allergy Verified 09/24/23 07:12 Anes History & Medical History - Anesthetic History Anesthesia Complications: reports: No previous complications - Medical History Cardiovascular: reports: None Pulmonary: reports: COPD Gastrointestinal: reports: Hiatal hernia, Crohn's disease, Other Urinary: reports: Kidney stones Neuro: reports: None Musculoskeletal: reports: Osteoarthritis Endocrine/Autoimmune: reports: HyPERthyroidism, HyPOthyroidism Skin: reports: Rosacea Smoking Status: Never smoker - Surgical History General: reports: Cholecystectomy, Bowel surgery, Colonoscopy, EGD, Other Eyes Ears Nose Throat (EENT): reports: Cataracts, Tonsil/Adenoidectomy Exam General: Alert, Oriented x3 Dental: WNL Mouth Opening: Greater than 4 Fingerbreadths Neck Mobility: Normal Mallampati classification: II Respiratory: Lungs clear Cardiovascular: Regular rate, Normal S1, Normal S2 Plan Anesthesia Type: MAC Consent for Procedure(s) Verified and Reviewed: Yes Code Status: Attempt Resuscitation ASA classification: 2-Mild systemic disease Is this case an emergency?: No
[2023-09-24] MEDS ORDERED: EPINEPHrine 1 MG/ML AMP ONE (07:41)
[2023-09-24] MEDS ORDERED: BSS/LIDOCAINE/EPINEPHRINE 1 ML VIAL ONE ×2 (07:41→08:30)
[2023-09-24] MEDS ORDERED: BRIMONIDINE 0.2% OPHTH DROPS 5 ML ONE (07:41)
[2023-09-24] MEDS ORDERED: TIMOLOL 0.5% OPHTH DROPS ONE ×2 (07:41→08:30)
[2023-09-24] MEDS ORDERED: BRIMONIDINE 0.2% OPHTH DROPS 5 ML OPTH ONE (07:58)
[2023-09-24] MEDS ORDERED: EPINEPHrine 1 MG/ML AMP IR ONE (07:58)
[2023-09-24] MEDS ORDERED: BSS/LIDOCAINE/EPINEPHRINE 1 ML SYRINGE IO ONE (07:58)
[2023-09-24] MEDS ORDERED: TIMOLOL 0.5% OPHTH DROPS OPTH ONE (07:58)
[2023-09-24] MEDS ORDERED: PROPARACAINE 0.5% OPHTH DROPS 15 ML EACHEYE ONE (07:59)
[2023-09-24] MEDS ORDERED: VANCOMYCIN OPHTH (TOPICAL) 10 MG/ML SYRINGE TOP ONE (07:59)
[2023-09-24] MEDS ORDERED: fentaNYL 100 MCG/2 ML VIAL ONE (08:04)
[2023-09-24] MEDS ORDERED: ONDANSETRON 4 MG/2 ML VIAL ONE (08:26)
--- NOTE | 2023-09-24 08:31 | OPERATIVE REPORT ---
Operative Report - Other Other Information/Narrative: Date of Surgery: 09/24/23 Preop Dx: Visually significant cataract left eye. Cataract surgery was performed in the right eye on . Postop Dx: Same Procedure: Phacoemulsification with posterior chamber intraocular lens implant left eye Surgeon: Dr. Coy Wheeler Anesthesia: Monitored anesthesia care Complications: None Operative Indications: This is a 78-year-old F with progressive vision loss in the left eye due to 3-4+ nuclear sclerotic and 2+ cortical cataract. Best corrected visual acuity was 20/40 with glare to hand motion vision in the left eye. Indications for surgery were: - Overall decrease in vision - Difficulty seeing words on a computer screen - Difficulty reading - Difficulty seeing words, closed captions, or game scores on TV - Difficulty seeing street signs - Difficulty driving in low light or at night - Difficulty driving at night because of headlights from other vehicles - Difficulty with glare or bright lights in any situation The patient was consented at length concerning the risks and benefits of cataract surgery after which the patient expressed a desire to proceed with surgery. Operative Procedure: The patient was taken into OR#3 and placed under monitored anesthesia care. A surgical time-out was conducted confirming correct patient, correct procedure, and correct surgical site. The patient was given topical anesthesia and then prepped and draped in the usual sterile fashion. The eye was entered at the 6 and 3 oclock positions. Intracameral Shugarcaine was injected into the anterior chamber followed by a dispersive viscoelastic. A continuous-tear curvilinear capsulorhexis was performed. The nucleus was hyd rodissected and phacoemulsified. The cortex was evacuated using automated infusion and aspiration. A cohesive viscoelastic was injected into the capsular bag and a 22.0 diopter intraocular lens was inserted into the bag. Infusion and aspiration were used to evacuate the viscoelastic materials from the eye. The wounds were hydrated and the eye inflated to physiologic pressure using balanced salt solution. Approximately 0.25ml of a mixture of triamcinolone and moxifloxacin was injected trans-sclerally into the vitreous in the inferotemporal quadrant using a 30 gauge cannula. An additional 0.25ml of a mixture of triamcinolone and moxifloxacin was injected subconjunctivally in the superior quadrant for infection and inflammation prophylaxis. Wound integrity was checked with Weck-Jacqueline sponges. The patient was taken from the operating room in good condition and given post-op instructions.
[2023-09-24 09:03] VITALS: BP 112/76; O2SAT 97
--- NOTE | 2023-09-24 10:44 | ANESTHESIA POST OP EVALUATION ---
Anesthesia Post Eval - Post Anesthesia Eval Vitals: Last Vital Signs Temp 36.5 C 09/24/23 09:00 Pulse 67 09/24/23 09:00 Resp 16 09/24/23 09:00 BP 112/76 09/24/23 09:00 Pulse Ox 97 09/24/23 09:00 O2 Flow Rate CV Function Including HR & BP: Stable Pain Control: Additional Therapies Ordered Nausea & Vomiting: Negative Mental Status: Baseline Respiratory Status: Airway Patent Hydration Status: Satisfactory Anesthesia Complications: None
== END 2023-09-24 06:45 | disposition home or self-care (01) ==
LOC: SDS 06:44
PROVIDERS: ATTEND Ophthalmology
DX: H25.812 Combined forms of age-related cataract, left eye (principal); Z98.41 Cataract extraction status, right eye; E66.9 Obesity, unspecified; Z68.36 Body mass index [BMI] 36.0-36.9, adult; J44.9 Chronic obstructive pulmonary disease, unspecified
CPT/HCPCS: 66984; A9270; J3490; J7120

== ENCOUNTER 2023-10-06 10:03 | Emergency (ER) | payer MEDICARE, OTHER ==
--- NOTE | 2023-10-06 10:58 | XRAY Report ---
PROCEDURE: Knee 4+V RT INDICATIONS: Trauma TECHNIQUE: 4 views of the knee(s) were acquired. COMPARISON: None. FINDINGS: Bones: No fractures or dislocations. No suspicious bony lesions. Advanced degenerative arthritis of the right knee with bulky tricompartment osteophytes and severe joint space loss and lateral sublu xation of the tibia relative to the femur. Soft tissues: Small knee joint effusion. No suspicious soft tissue calcifications or masses. IMPRESSION: No acute bony abnormality. Advanced degenerative arthritis. Reviewed by: Jayy Ospina MD on 10/06/2023 10:57 AM [facility] Approved by: Jayy Ospina MD on 10/06/2023 10:57 AM [facility] Station ID: [id number]
--- NOTE | 2023-10-06 11:39 | ED Physician Documentation ---
PD HPI LOWER EXT INJURY - Stated complaint Stated Complaint: RT KNEE PX - Chief complaint Chief Complaint: Trauma Ext - History obtained from History obtained from: Patient, Family - Additional information Additional information: The patient comes to the emergency department with chief complaint of right knee pain. She states she was at the dinner table yesterday and stood up the way she normally does and felt a sharp pain deep in her right knee. She did not feel a "snap", "pop", or "crack". She did not feel as though she twisted her knee. She did not fall. She states she just sat right back down. She had some assistance to get to bed and then when she got up this morning, she used a walker that a friend had provided to hobble around with Partial weightbearing on her right lower extremity. She states that it does not hurt if she is sitting with the knee flexed at 90 degrees, but if she tries to extend, she feels pain in a vertical lines starting from just inferior to her knee and extending over the patella and just superior. She states she cannot extend all the way because it hurts. She does not feel as though her knee is "locked up". The patient states that she has noticed no edema in her right knee. She suspects she has some arthritis in the knee. She does not think she has ever been diagnosed with this. The patient states that she had something similar happen about 4 years ago but that she just sat down for a while and the pain subsided. She states this is lasting a bit longer. No numbness or tingling in her foot. No other complaints at this time. PD PAST MEDICAL HISTORY - Past Medical History Past Medical History: Yes Cardiovascular: None Respiratory: COPD Neuro: None Endocrine/Autoimmune: HyPERthyroidism, HyPOthyroidism GI: Hiatal hernia, Crohn's disease, Other BATCH DUMPER: None : Kidney stones HEENT: Chronic vision loss Psych: None Musculoskeletal: Osteoarthritis Derm: Rosacea - Past Surgical History Past Surgical History: Yes General: Cholecystectomy, Bowel surgery, Colonoscopy, EGD, Other HEENT: Cataracts, Tonsil/Adenoidectomy - Present Medications Home Medications: Ambulatory Orders Medication Instructions Recorded Confirmed Levothyroxine [Synthroid] 112 mcg PO QDAC 08/19/16 10/06/23 Lactobacillus Acidophilus 1 each PO DAILY 03/20/20 10/06/23 [Probiotic Acidophilus] Multivitamin 1 each PO DAILY 03/20/20 10/06/23 Calcium Carbonate [Elemental 600 mg PO DAILY 10/25/20 10/06/23 Calcium] Ibuprofen [Motrin] 600 mg PO Q6H PRN 10/25/20 10/06/23 [place]-3/Dha/Epa/Fish Oil [Fish Oil 1 each PO DAILY 10/25/20 10/06/23 1,000 mg Softgel] Vitamin B Complex/Folic Acid 1 tab PO DAILY 10/25/20 10/06/23 [B-Complex Tablet] HYDROcod/ACETAM 5/325 [[place] 5/325] 1 - 2 tablet PO Q6H PRN #10 tablet 10/06/23 predniSONE [Deltasone] 10 mg PO [id number] #42 tab 10/06/23 - Allergies Allergies/Adverse Reactions: Allergies Allergy/AdvReac Type Severity Reaction Status Date / Time No Known Drug Allergies Allergy Verified 10/06/23 10:17 - Social History Does the pt smoke?: No Smoking Status: Never smoker Does the pt drink ETOH?: Yes Does the pt have substance abuse?: No - Immunizations Immunizations are current?: Yes - POLST Patient has POLST: No PD ED PE NORMAL - Vitals Vital signs reviewed: Yes - General General: Alert and oriented X 3, No acute distress, Well developed/nourished, Other (Generally obese.) - HEENT HEENT: Atraumatic, PERRL, EOMI, Moist mucous membranes - Respiratory Respiratory: No respiratory distress - Derm Derm: Normal color, Warm and dry, No rash - Extremities Extremities: No deformity, No tenderness to palpate, No edema, No calf tenderness / cord, Other (Obese right knee without instability or tenderness to palpation. Extension to about 15 degrees, after which patient asked to flex her knee again because "it hurts.") - Neuro Neuro: Alert and oriented X 3 - Psych Psych: Normal mood, Normal affect Results - Vitals Vitals: Vital Signs - 24 hr 10/06/23 10:17 Temperature 36.2 C L Heart Rate 80 Respiratory 18 Rate Blood Pressure 145/88 H O2 Saturation 98 Oxygen O2 Source Room air - Rads (name of study) Right knee x-ray series Relevant Findings:: Final report received, See rad report (Arthritis otherwise negative) PD Medical Decision Making - ED course Complexity details: reviewed results, re-evaluated patient, considered differential, d/w patient, d/w family ED course: I discussed with the patient that her knee x-rays show arthritis, but nothing else. Her mechanism of injury does not raise concern for either fracture or sprain, though the patient may have strained some of the tissues. I explained to her that she has significant arthritis and this may have caused some alteration in her mechanics or some catching of bony irregularities, which could cause some pain and subsequent inflammation. She may have some scar tissue that has also been strained. It is really hard to say at this point in time, but there is no evidence of improper tracking or knee instability, not to mention fracture. I have offered the patient an articulating knee brace to help with some support. We have discussed the use of this along with a walker. The patient does live up 2 flights of stairs but states she is able to get up and down the stairs on her bottom. She also has friends and family to help her. At this point in time, I discussed with her that she needs to think ahead in terms of whether or not the living up stairs is going to work for her in the long- term. She also needs to start thinking about follow-up to discuss potential knee replacement with an orthopedist, should her pain episodes become more frequent or longer lasting. We have discussed the usual indications for return. I have sent prescriptions for steroid taper and analgesia to the pharmacy of the patient's choice. Departure - Departure Disposition: 01 Home, Self Care Clinical Impression: Arthritis Knee pain Qualifiers: Chronicity: acute Laterality: right Qualified Code(s): M25.561 - Pain in right knee Condition: Stable Instructions: Knee Pain, Osteoarthritis Living Prescriptions: predniSONE [Deltasone] 10 mg PO [id number] #42 tab HYDROcod/ACETAM 5/325 [[place] 5/325] 1 - 2 tablet PO Q6H PRN #10 tablet PRN Reason: Pain Comments: Your x-ray shows arthritis of your right knee but otherwise, no evidence of acute injury. You may have aggravated the arthritic structures of your knee or strained some scar tissue or some the other soft tissues in the knee. There is no evidence of a serious sprain and certainly not of a fracture. As such, your symptoms are expected to blow over on their own, but if they become more frequent or long-lasting, then you may want to consider seeing your doctor to discuss referral to orthopedics to discuss options including knee replacement. Alternatively, you can live with the discomfort but should make plans well in advance of any disability, regarding whether your current living situation is sustainable. Please schedule the next available follow-up with your primary doctor. You may use the walker and the brace as needed. Prescriptions for steroid taper and some medication for pain, which you may use with ibuprofen, have been electronically transmitted to the Pharmacy in [place].
[2023-10-06 13:03] VITALS: BP 150/86; O2SAT 100
== END 2023-10-06 13:03 | disposition home or self-care (01) ==
LOC: ED 10:03
DX: M17.11 Unilateral primary osteoarthritis, right knee (principal)
CPT/HCPCS: 99283

== ENCOUNTER 2024-05-31 09:18 | Outpatient (CLI) | payer MEDICARE, OTHER ==
--- NOTE | 2024-06-01 13:43 | Mammography Report ---
BILATERAL DIGITAL SCREENING MAMMOGRAM 3D/2D: 05/31/2024 CLINICAL: Routine screening. Personal history of left breast cancer. Comparison is made to exams dated: 05/13/2023 mammogram, 05/13/2022 mammogram, 04/05/2021 mammogram, 04/02 specimen, 04/02/2020 specimen, and 04/02/2020 localization - [facility]. Both breasts are heterogeneously dense, which may obscure small masses (category c / 51-75% glandular tissue). There are benign post operative findings in the left breast. No significant masses, calcifications, or other findings are seen in either breast. There has been no significant interval change. IMPRESSION: BENIGN There is no mammographic evidence of malignancy. A 1 year screening mammogram is recommended. This exam was interpreted at Station ID: [id number]. NOTE: For mammograms, a report in lay terms will be sent to the patient. Approximately 15% of breast malignancies will not be visualized mammographically. In the management of a palpable breast mass, a negative mammogram must not discourage biopsy of a clinically suspicious lesion. Electronically Signed By: Monika Lundberg M.D., Ph.D. eb/penrad:05/31/2024 16:16:40 copy to: SULEIMAN RAMOS letter sent: No_Letter ACR BI-RADS Category 2: Benign Finding(s) 3342F PARENCHYMAL PATTERN: (D) - The breast(s) demonstrate(s) heterogeneously dense fibroglandular parmanpreety ma. BI-RADS CATEGORY: (2) - 2 RECOMMENDATION: (ANNUAL) - Recommend routine annual screening mammography. [id number] 1 year screening LATERALITY: (B)
== END 2024-05-31 09:19 | disposition home or self-care (01) ==
LOC: DI 09:18
PROVIDERS: ATTEND Internal Medicine Hematology & Oncology
DX: Z12.31 Encounter for screening mammogram for malignant neoplasm of breast (principal); R92.333 Mammographic heterogeneous density, bilateral breasts; Z85.3 Personal history of malignant neoplasm of breast